=== PATIENT | female | born 1955 | race Caucasian/White ===

== ENCOUNTER 2017-02-02 10:56 | Inpatient (IN) | payer OTHER ==
[2017-02-02 11:42] LABS: BASOPHIL 0.8 % (0-2.0); EOSINOPHIL 1.5 % (0-4.5); MCH 29.3 pg (25.7-33.7); MCHC 33.1 g/dl (32.0-36.0); MEAN CELL VOLUME 88.7 fl (80-96); MEAN PLT VOLUME 8.3 fl (7.5-11.1); NEUTROPHILS 73.1 % (42.8-82.8); PLATELET COUNT 243 K/MM3 (134-434); RDW 14.5 % (11.6-15.6); WHITE BLOOD COUNT 10.8 K/mm3 (4.0-10.0)
[2017-02-02 11:43] LABS: URINE APPEARANCE SLCLOUDY; URINE BLOOD 1+ (NEGATIVE); URINE COLOR AMBER; URINE GLUCOSE (UA) NEGATIVE (NEGATIVE); URINE KETONE TRACE (NEGATIVE); URINE NITRITE NEGATIVE (NEGATIVE); URINE UROBILINOGEN 4.0 E.U/dl mg/dL (0.2-1.0)
[2017-02-02] MEDS ORDERED: HYDROmorphone HCL CARPU-JECT 1 MG/1 ML DISP.SYRIN IVPUSH ONE (11:48)
[2017-02-02] MEDS ORDERED: SODIUM CHLORIDE 1,000 ML IV STA (11:48)
[2017-02-02] MEDS ORDERED: ONDANSETRON 4 MG/2 ML VIAL IVPUSH ONE (11:48)
[2017-02-02 11:50] LABS: URINE LEUK ESTERASE 3+ (NEGATIVE); URINE MUCUS MANY; URINE PROTEIN 1+ (NEGATIVE); URINE RBC 17 /hpf (0-3); URINE WBC 15 /hpf (3-5)
[2017-02-02] MEDS ORDERED: HYDROmorphone HCL CARPU-JECT 1 MG/1 ML DISP.SYRIN ONE (11:50)
[2017-02-02] MEDS ORDERED: ONDANSETRON 4 MG/2 ML VIAL ONE (11:51)
--- NOTE | 2017-02-02 11:51 | PDOC ---
History of Present Illness - General History Source: Patient Exam Limitations: No Limitations - History of Present Illness Initial Comments: 02/02/17 11:51 61 year old female with a PMHx of diverticulitis (03/2016), asthma, COPD, multiple herniated discs who presents to the ED with worsening RLQ pain for two weeks. The patient reports the pain is constant and describes it as a bloating and socorro. She reports the pain is worse at night and when she has a bowel movement. She states her last normal bowel movement was a week ago. Her bowel movement this morning was smaller than usual and not normal for her. She has tried taking bisacodyl with no help. 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 She reports a fever (Tmax 100) last night. She denies taking medication for pain. She denies nausea, vomiting, diarrhea. Denies chest pain, SOB. Allergies: cefaclor, azithromycin, latex, levofloxacin <Phuong Jennings - Last Filed: 02/02/17 14:36> <Blaine Desir - Last Filed: 02/02/17 14:46> - General Chief Complaint: Pain Stated Complaint: PAIN Time Seen by Provider: 02/02/17 11:08 Past History <Phuong Jennings - Last Filed: 02/02/17 14:36> - Past Medical History Anemia: No Asthma: Yes Cancer: No Cardiac Disorders: No CVA: No COPD: Yes (pneumonia) CHF: No Dementia: No Diabetes: No GI Disorders: Yes (Diverticulitis, Polyps) Disorders: No HTN: No Hypercholesterolemia: No Liver Disease: No Seizures: No Thyroid Disease: No - Surgical History Abdominal Surgery: No Appendectomy: No Cardiac Surgery: No Cholecystectomy: No Lung Surgery: No Neurologic Surgery: No Orthopedic Surgery: Yes (L knee x2, L foot bone spur sx, bilateral elbow sx) - Immunization History Immunization Up to Date: Yes - Psycho/Social/Smoking Cessation Hx Anxiety: No Suicidal Ideation: No Smoking History: Never smoked Have you smoked in the past 12 months: No If you are a former smoker, when did you quit?: 16 YRS Information on smoking cessation initiated: No Hx Alcohol Use: No Drug/Substance Use Hx: No Substance Use Type: None Hx Substance Use Treatment: No <Blaine Desir - Last Filed: 02/02/17 14:46> - Past Medical History Allergies/Adverse Reactions: Allergies Allergy/AdvReac Type Severity Reaction Status Date / Time cefaclor [From Ceclor] Allergy Severe Difficulty Verified 07/05/16 09:47 Breathing azithromycin [From Zithromax] Allergy Intermediate Rash Verified 07/05/16 09:47 latex Allergy Mild Rash Verified 07/05/16 09:47 levofloxacin [From Levaquin] Allergy Mild Rash Verified 07/05/16 09:47 Home Medications: Ambulatory Orders Albuterol Sulfate [Proventil HFA Inhaler -] 1 - 2 inh PO TID PRN 04/06/16 Fluticasone/Salmeterol [Advair Hfa 230-21 Mcg Inhaler] 1 inh PO BID PRN Gabapentin [Neurontin -] 300 mg PO BID 04/06/16 Montelukast Na [Singulair -] 10 mg PO HS PRN 04/06/16 Tiotropium [place] [Spiriva] 1 inh PO TID PRN 04/06/16 Trazodone HCl [Desyrel -] 50 mg PO HS 04/06/16 Sumatriptan Succinate [Imitrex -] 100 mg PO ONCE #10 tablet MDD 200mg 07/05/16 Review of Systems - Review of Systems Able to Perform ROS?: Yes Comments:: 02/02/17 11:51 GENERAL/CONSTITUTIONAL: (+) fever. No chills. No weakness. HEAD, EYES, EARS, NOSE AND THROAT: No change in vision. No ear pain or discharge. No sore throat. CARDIOVASCULAR: No chest pain or shortness of breath. RESPIRATORY: No cough, wheezing, or hemoptysis. GASTROINTESTINAL: (+) RLQ pain. No nausea, vomiting, diarrhea. GENITOURINARY: No dysuria, frequency, or change in urination. MUSCULOSKELETAL: No joint or muscle swelling or pain. No neck or back pain. SKIN: No rash NEUROLOGIC: No headache, vertigo, loss of consciousness, or change in strength/ sensation. ENDOCRINE: No increased thirst. No abnormal weight change. HEMATOLOGIC/LYMPHATIC: No anemia, easy bleeding, or history of blood clots. ALLERGIC/IMMUNOLOGIC: No hives or skin allergy. <Phuong Jennings - Last Filed: 02/02/17 14:36> *Physical Exam - Vital Signs Last Vital Signs Temp Pulse Resp BP Pulse Ox 98.0 F 95 H 18 122/84 99 02/02/17 11:09 02/02/17 11:09 02/02/17 11:09 02/02/17 11:09 02/02/17 11:09 - Physical Exam Comments: 02/02/17 11:51 GENERAL: Awake, alert, and fully oriented, in no acute distress HEAD: No signs of trauma EYES: PERRLA, EOMI, sclera anicteric, conjunctiva clear ENT: Auricles normal inspection, hearing grossly normal, nares patent, oropharynx clear without exudates. Moist mucosa NECK: Normal ROM, supple, no lymphadenopathy, JVD, or masses LUNGS: Breath sounds equal, clear to auscultation bilaterally. No wheezes, and no crackles HEART: Regular rate and rhythm, normal S1 and S2, no murmurs, rubs or gallops ABDOMEN: Positive [place] sign, RUQ and RLQ tenderness to palpation. Soft, normoactive bowel sounds. No guarding, no rebound. No masses EXTREMITIES: Normal range of motion, no edema. No clubbing or cyanosis. No cords, erythema, or tenderness NEUROLOGICAL: Cranial nerves II through XII grossly intact. Normal speech, normal gait SKIN: Warm, Dry, normal turgor, no rashes or lesions noted. <Phuong Jennings - Last Filed: 02/02/17 14:36> - Vital Signs Last Vital Signs Temp Pulse Resp BP Pulse Ox 98.0 F 95 H 18 122/84 99 02/02/17 11:09 02/02/17 11:09 02/02/17 11:09 02/02/17 11:09 02/02/17 11:09 <Blaine Desir - Last Filed: 02/02/17 14:46> ED Treatment Course - LABORATORY CBC & Chemistry Diagram: 02/02/17 11:20 02/02/17 11:20 - ADDITIONAL ORDERS Additional order review: Laboratory Results 02/02/17 11:20 Urine Color Gayla Urine Appearance Slcloudy Urine pH 5.0 Urine Protein 1+ H Urine Glucose (UA) Negative Urine Ketones Trace H Urine Blood 1+ H Urine Nitrite Negative Urine Bilirubin 2.0 Urine Urobilinogen 4.0 e.u/dl H Ur Leukocyte Esterase 3+ H 02/02/17 11:20 RBC 4.95 MCV 88.7 MCHC 33.1 RDW 14.5 MPV 8.3 Neutrophils % 73.1 D Lymphocytes % 16.8 D Monocytes % 7.8 Eosinophils % 1.5 Basophils % 0.8 - RADIOLOGY Radiograph Interpretation: 02/02/17 13:03 Gallbladder US: Reported by Dr. Morteza Flaherty Impression: mild degree hepatomegaly with diffuse hepatic steatosis. Normal gallbladder and pancreas with no biliary dilation. No hydronephrosis or renal stones, no gallstones, normal appearance of the gallbladder. No ascites. <Phuong Jennings - Last Filed: 02/02/17 14:36> - LABORATORY CBC & Chemistry Diagram: 02/02/17 11:20 02/02/17 11:20 - ADDITIONAL ORDERS Additional order review: Laboratory Results 02/02/17 11:20 Urine Color Gayla Urine Appearance Slcloudy Urine pH 5.0 Urine Protein 1+ H Urine Glucose (UA) Negative Urine Ketones Trace H Urine Blood 1+ H Urine Nitrite Negative Urine Bilirubin 2.0 Urine Urobilinogen 4.0 e.u/dl H Ur Leukocyte Esterase 3+ H 02/02/17 11:20 RBC 4.95 MCV 88.7 MCHC 33.1 RDW 14.5 MPV 8.3 Neutrophils % 73.1 D Lymphocytes % 16.8 D Monocytes % 7.8 Eosinophils % 1.5 Basophils % 0.8 - RADIOLOGY Radiology Studies Ordered: Category Date Time Status ABDOMEN & PELVIS CT WITH CONTR [CT] Stat CT Scan 02/02/17 11:31 Ordered GALLBLADDER US [US] Stat Ultrasound 02/02/17 11:31 Ordered <Blaine Desir - Last Filed: 02/02/17 14:46> Medical Decision Making - Medical Decision Making 02/02/17 14:[address] Bell. [phone] <Phuong Jennings - Last Filed: 02/02/17 14:36> *DC/Admit/Observation/Transfer - Attestations Scribe Attestion: 02/02/17 11:52 Documentation prepared by Phuong Jennings, acting as medical officer psychiatry for Blaine Desir DO. <Phuong Jennings - Last Filed: 02/02/17 14:36> - Discharge Dispostion Admit: Yes - Attestations Physician Attestion: 02/02/17 11:51 I, Dr. Blaine Desir, attest that this document has been prepared under my direction and personally reviewed by me in its entirety. I further attest, that it accurately reflects all work, treatment, procedures and medical decision -making performed by me. <Blaine Desir - Last Filed: 02/02/17 14:46> Diagnosis at time of Disposition: Acute diverticulitis of intestine - Discharge Dispostion Condition at time of disposition: Improved - Referrals Referrals: Ashley Shah [Primary Care Provider] -
[2017-02-02 11:54] LABS: INR 1.05 (0.82-1.09); PROTHROMBIN TIME (PATIENT) 11.6 SEC (9.98-11.88)
[2017-02-02 12:22] LABS: ALBUMIN 3.6 g/dl (3.4-5.0); ANION GAP 5 (8-16); BILIRUBIN,TOTAL 0.2 mg/dL (0.2-1.0); CALCIUM 9.4 mg/dL (8.5-10.1); CO2 28 mmol/L (21-32); CREATININE 0.6 mg/dL (0.55-1.02); GLUCOSE,RANDOM 91 mg/dL (74-106); SGOT/AST 13 U/L (15-37); SGPT/ALT 14 U/L (12-78); TOT PROT 7.9 g/dl (6.4-8.2)
[2017-02-02 12:23] LABS: ALK PHOS 114 U/L (45-117)
[2017-02-02] MEDS ORDERED: METRONIDAZOLE 500 MG PREMIXED 100 ML IVPB ONE ×2 (14:28→14:32)
[2017-02-02] MEDS ORDERED: MEROPENEM 1 MG in DEXTROSE 5%-WATER - 100 ML IVPB ONE (14:32)
[2017-02-02] MEDS ORDERED: ALBUTEROL SO4 6.7 GM HFA INHALER IH PRN ×3 (15:02→15:49)
[2017-02-02] MEDS ORDERED: MONTELUKAST NA 10 MG TABLET PO PRN (15:02)
[2017-02-02] MEDS ORDERED: PATIENT'S OWN MEDICATION (NON-FORMULARY) (Fluticasone/Salmeterol [Advair Hfa 230-21 Mcg In PO PRN (15:02)
--- NOTE | 2017-02-02 15:03 | HP ---
CHIEF COMPLAINT: Abdominal pain PCP: YARA Aguilera HISTORY OF PRESENT ILLNESS: This is a 61 year old female with a history of diverticulitis (3 prior episodes), admission for colonoscopy complicated by sepsis, asthma/COPD, lumbar radiculopathy and chronic back pain, and LANDEN who presented to the ED complaining of two weeks of abdominal pain (worst in RLQ), now with nausea and low grade fever (100.0 at home). ER course was notable for: (1) WBC 10.8 (2) CTAP with PO/IV contrast: Acute diverticulitis of the sigmoid colon with a small intramural abscess with ring enhancement measuring 2.1 x 1.5 x 1.8cm (3) UA with 3+ leukesterase Recent Travel: None PAST MEDICAL HISTORY: As above PAST SURGICAL HISTORY: Bilateral elbows, bilateral knees, left plantar foot Social History: On disability (COPD, chronic back pain), lives alone Smoking: Quit 1999 Alcohol: Occasional Drugs: None Family History: Father from [place] in 80s, mother with lymphoma Allergies cefaclor [From Ceclor] Allergy (Severe, Verified 07/05/16 09:47) Difficulty Breathing Anaphylactic shock azithromycin [From Zithromax] Allergy (Intermediate, Verified 07/05/16 09:47) Rash latex Allergy (Mild, Verified 07/05/16 09:47) Rash levofloxacin [From Levaquin] Allergy (Mild, Verified 07/05/16 09:47) Rash HOME MEDICATIONS: Home Medications Medication Instructions Recorded Albuterol Sulfate [Proventil HFA 1 - 2 inh PO TID PRN 04/06/16 Inhaler -] Fluticasone/Salmeterol [Advair Hfa 1 inh PO BID PRN 04/06/16 230-21 Mcg Inhaler] Gabapentin [Neurontin -] 300 mg PO BID 04/06/16 Montelukast Na [Singulair -] 10 mg PO HS PRN 04/06/16 Tiotropium [place] [Spiriva] 1 inh PO TID PRN 04/06/16 Trazodone HCl [Desyrel -] 50 mg PO HS 04/06/16 Sumatriptan Succinate [Imitrex -] 100 mg PO ONCE #10 tablet MDD 200mg 07/05/16 REVIEW OF SYSTEMS CONSTITUTIONAL: Subjective/low grade fever Absent: chills, diaphoresis, generalized weakness, malaise, loss of appetite, weight change HEENT: Absent: rhinorrhea, nasal congestion, throat pain, throat swelling, difficulty swallowing, mouth swelling, ear pain, eye pain, visual changes CARDIOVASCULAR: Absent: chest pain, syncope, palpitations, irregular heart rate, lightheadedness , peripheral edema RESPIRATORY: Absent: cough, shortness of breath, dyspnea with exertion, orthopnea, wheezing, stridor, hemoptysis GASTROINTESTINAL: See HPI GENITOURINARY: Absent: dysuria, frequency, urgency, hesitancy, hematuria, flank pain, genital pain MUSCULOSKELETAL: Absent: myalgia, arthralgia, joint swelling, back pain, neck pain SKIN: Absent: rash, itching, pallor HEMATOLOGIC/IMMUNOLOGIC: Absent: easy bleeding, easy bruising, lymphadenopathy, frequent infections ENDOCRINE: Absent: unexplained weight gain, unexplained weight loss, heat intolerance, cold intolerance NEUROLOGIC: Absent: headache, focal weakness or paresthesias, dizziness, unsteady gait, seizure, mental status changes, bladder or bowel incontinence PSYCHIATRIC: Absent: anxiety, depression, suicidal or homicidal ideation, hallucinations. PHYSICAL EXAMINATION Vital Signs - 24 hr 02/02/17 02/02/17 11:09 13:52 Temperature 98.0 F 98.6 F Pulse Rate 95 H Pulse Rate [ 89 Left Apical] Respiratory 18 16 Rate Blood Pressure 122/84 Blood Pressure 112/68 [Right Arm] O2 Sat by Pulse 99 98 Oximetry (%) GENERAL: Awake, alert, and fully oriented, in no acute distress. HEAD: Normal with no signs of trauma. EYES: Pupils equal, round and reactive to light, extraocular movements intact, sclera anicteric, conjunctiva clear. No lid lag. EARS, NOSE, THROAT: Ears normal, nares patent, oropharynx clear without exudates. Moist mucous membranes. NECK: Normal range of motion, supple without lymphadenopathy, JVD, or masses. LUNGS: Breath sounds equal, clear to auscultation bilaterally. No wheezes, and no crackles. No accessory muscle use. HEART: Regular rate and rhythm, normal S1 and S2 without murmur, rub or gallop. ABDOMEN: Soft, tender to palpation RLQ>LLQ, not distended, normoactive bowel sounds, no guarding, no rebound, no masses. No hepatomegaly or splenomegaly. MUSCULOSKELETAL: Normal range of motion at all joints. No bony deformities or tenderness. No CVA tenderness. UPPER EXTREMITIES: 2+ pulses, warm, well-perfused. No cyanosis. No clubbing. No peripheral edema. LOWER EXTREMITIES: 2+ pulses, warm, well-perfused. No calf tenderness. No peripheral edema. NEUROLOGICAL: Cranial nerves II-XII intact. Normal speech. Normal gait. PSYCHIATRIC: Cooperative. Good eye contact. Appropriate mood and affect. SKIN: Warm, dry, normal turgor, no rashes or lesions noted, normal capillary refill. Laboratory Results - last 24 hr 02/02/17 02/02/17 02/02/17 11:20 11:20 11:20 WBC 10.8 H D RBC 4.95 Hgb 14.5 Hct 43.9 MCV 88.7 MCH 29.3 MCHC 33.1 RDW 14.5 Plt Count 243 D MPV 8.3 Neutrophils % 73.1 D Lymphocytes % 16.8 D Monocytes % 7.8 Eosinophils % 1.5 Basophils % 0.8 INR 1.05 Sodium Potassium Chloride Carbon Dioxide Anion Gap BUN Creatinine Creat Clearance w eGFR Random Glucose Calcium Total Bilirubin AST ALT Alkaline Phosphatase Total Protein Albumin Lipase Urine Color Gayla Urine Appearance Slcloudy Urine pH 5.0 Urine Protein 1+ H Urine Glucose (UA) Negative Urine Ketones Trace H Urine Blood 1+ H Urine Nitrite Negative Urine Bilirubin 2.0 Urine Urobilinogen 4.0 e.u/dl H Ur Leukocyte Esterase 3+ H Urine RBC 17 Urine WBC 15 Ur Epithelial Cells Moderate Urine Mucus Many 02/02/17 11:20 WBC RBC Hgb Hct MCV MCH MCHC RDW Plt Count MPV Neutrophils % Lymphocytes % Monocytes % Eosinophils % Basophils % INR Sodium 139 Potassium 4.4 Chloride 106 Carbon Dioxide 28 Anion Gap 5 L BUN 7 D Creatinine 0.6 Creat Clearance w eGFR > 60 Random Glucose 91 Calcium 9.4 Total Bilirubin 0.2 D AST 13 L ALT 14 D Alkaline Phosphatase 114 Total Protein 7.9 Albumin 3.6 Lipase 141 Urine Color Urine Appearance Urine pH Urine Protein Urine Glucose (UA) Urine Ketones Urine Blood Urine Nitrite Urine Bilirubin Urine Urobilinogen Ur Leukocyte Esterase Urine RBC Urine WBC Ur Epithelial Cells Urine Mucus ASSESSMENT/PLAN: 61 year old female admitted with acute diverticulitis with abscess. Problem List - Problem (1) Diverticulitis of intestine with abscess Assessment/Plan: -NPO -Surgical consult -In consultation with ID, Meropenem (Levaquin allergy) + Flagyl; documented that patient is allergic to Cefaclor but can take PCNs without a reaction -Morphine 4mg IVPB q4h prn pain -Zofran 4mg q6h prn nausea Code(s): K57.80 - DVTRCLI OF INTEST, PART UNSP, W PERF AND ABSCESS W/O BLEED (2) Asthma Assessment/Plan: -With COPD -No active issues -Continue albuterol prn, Advair, Spiriva Code(s): J45.909 - UNSPECIFIED ASTHMA, UNCOMPLICATED (3) DVT prophylaxis Assessment/Plan: -Out of bed -[facility] Code(s): [id number] - Visit type - Emergency Visit Emergency Visit: Yes ED Registration Date: 02/02/17 Care time: The patient presented to the Emergency Department on the above date and was hospitalized for further evaluation of their emergent condition. - New Patient This patient is new to me today: Yes Date on this admission: 02/02/17 - Critical Care Critical Care patient: No
[2017-02-02] MEDS ORDERED: ONDANSETRON 4 MG/2 ML VIAL IVPB PRN (15:04)
[2017-02-02] MEDS ORDERED: morphine CARPU-JECT 2 MG/1 ML DISP.SYRIN IVPUSH PRN (15:04)
[2017-02-02] MEDS: SODIUM CHLORIDE 1,000 ML IV SCH (15:19)
--- NOTE | 2017-02-02 16:09 | CONSULT ---
Consult Consult Specialty:: infectious disesases Referred by:: Reason for Consultation:: diverticulitis - History of Present Illness Chief Complaint: abd pain,fever History of Present Illness: 61 year old female with a PMHx of diverticulitis asthma, COPD, multiple herniated discs who presents to the ED with worsening LLQ pain for two weeks. The patient reports the pain is constant and describes it as a bloating and socorro. according to the patient she has been having constipation for quite some time and her last BM was about a week back no nausea vomiting low grade temp according to her according to the patient this is her 4th episode - History Source History Provided By: Patient - Past Medical History Pulmonary: Yes: COPD, Pneumonia Infectious Disease: Yes: Other (varicella as child) Rheumatology: Yes: Other (arthritis, herniated disc) - Alcohol/Substance Use Hx Alcohol Use: No - Smoking History Smoking history: Never smoked Have you smoked in the past 12 months: No If you are a former smoker, when did you quit?: 16 YRS - Social History Usual Living Arrangement: Alone ADL: Independent Occupation: on disability Home Medications - Allergies Allergies/Adverse Reactions: Allergies Allergy/AdvReac Type Severity Reaction Status Date / Time cefaclor [From Ceclor] Allergy Severe Difficulty Verified 07/05/16 09:47 Breathing azithromycin [From Zithromax] Allergy Intermediate Rash Verified 07/05/16 09:47 latex Allergy Mild Rash Verified 07/05/16 09:47 levofloxacin [From Levaquin] Allergy Mild Rash Verified 07/05/16 09:47 - Home Medications Home Medications: Ambulatory Orders Albuterol Sulfate [Proventil HFA Inhaler -] 1 - 2 inh PO TID PRN 04/06/16 Fluticasone/Salmeterol [Advair Hfa 230-21 Mcg Inhaler] 1 inh PO BID PRN Gabapentin [Neurontin -] 300 mg PO BID 04/06/16 Montelukast Na [Singulair -] 10 mg PO HS PRN 04/06/16 Tiotropium [place] [Spiriva] 1 inh PO TID PRN 04/06/16 Trazodone HCl [Desyrel -] 50 mg PO HS 04/06/16 Sumatriptan Succinate [Imitrex -] 100 mg PO ONCE #10 tablet MDD 200mg 12/28/16 Review of Systems - Review of Systems Constitutional: reports: Fever Eyes: reports: No Symptoms HENT: reports: No Symptoms Neck: reports: No Symptoms Cardiovascular: reports: No Symptoms Respiratory: reports: No Symptoms Gastrointestinal: reports: Abdominal Pain, Constipation Genitourinary: reports: No Symptoms Musculoskeletal: reports: No Symptoms Integumentary: reports: No Symptoms Neurological: reports: No Symptoms Endocrine: reports: No Symptoms Hematology/Lymphatic: reports: No Symptoms Psychiatric: reports: No Symptoms Physical Exam Vital Signs: Vital Signs Temperature 98.6 F 02/02/17 13:52 Pulse Rate 89 02/02/17 13:52 Respiratory Rate 16 02/02/17 13:52 Blood Pressure 112/68 02/02/17 13:52 O2 Sat by Pulse Oximetry (%) 98 02/02/17 13:52 Constitutional: Yes: Calm, Mild Distress Eyes: Yes: Conjunctiva Clear Neck: Yes: Supple Cardiovascular: Yes: Regular Rate and Rhythm Respiratory: Yes: Regular, CTA Bilaterally Gastrointestinal: Yes: Soft, Hypoactive Bowel Sounds, Other (tenderness in the left lower quadrant) Musculoskeletal: Yes: WNL Extremities: Yes: WNL Neurological: Yes: Alert, Oriented Psychiatric: Yes: Alert, Oriented Imaging - Results Cat Scan: Report Reviewed, Image Reviewed Assessment/Plan patient evaluated and seen currently feeling better ac.diverticulitis abd abscess plan we will start her on meropenam strict npo close watch on pain and wbc if increases thern we will repeat imaging studies
[2017-02-02] MEDS ORDERED: MEROPENEM 1 GM in DEXTROSE 5%-WATER - 100 ML IVPB SCH (18:00)
[2017-02-02 18:09] VITALS: BMI 26.4
[2017-02-02] MEDS: HEPARIN NA (PORCINE) 5,000 UNITS/ML 1ML VIAL SQ SCH (18:20)
[2017-02-02] MEDS: MEROPENEM 1 GM in DEXTROSE 5%-WATER 100 ML IVPB SCH (18:24)
[2017-02-02] MEDS: morphine CARPU-JECT 4 MG/1 ML DISP.SYRIN IVPUSH PRN (18:32)
[2017-02-02] MEDS ORDERED: METRONIDAZOLE PREMIXED IVPB 50 ML IVPB SCH (21:00)
[2017-02-02] MEDS: GABAPENTIN 100 MG CAPSULE (FP) PO SCH (21:29)
[2017-02-02] MEDS: ACLIDINIUM BROMIDE 400 MCG/INH AERO.POWD IH SCH (23:47)
[2017-02-02] MEDS: traZODone HCL 50 MG TABLET (FP) PO SCH (23:48)
[2017-02-03] MEDS: MEROPENEM 1 GM in DEXTROSE 5%-WATER 100 ML IVPB SCH ×3 (01:32→17:44)
[2017-02-03] MEDS: HEPARIN NA (PORCINE) 5,000 UNITS/ML 1ML VIAL SQ SCH ×3 (01:32→17:44)
[2017-02-03] MEDS: SODIUM CHLORIDE 1,000 ML IV SCH ×3 (01:36→17:59)
[2017-02-03 07:34] LABS: BASOPHIL 0.9 % (0-2.0); EOSINOPHIL 2.8 % (0-4.5); MCH 29.7 pg (25.7-33.7); MCHC 33.6 g/dl (32.0-36.0); MEAN CELL VOLUME 88.4 fl (80-96); MEAN PLT VOLUME 8.9 fl (7.5-11.1); NEUTROPHILS 68.2 % (42.8-82.8); PLATELET COUNT 227 K/MM3 (134-434); RDW 14.1 % (11.6-15.6); WHITE BLOOD COUNT 7.4 K/mm3 (4.0-10.0)
[2017-02-03] MEDS: morphine CARPU-JECT 4 MG/1 ML DISP.SYRIN IVPUSH PRN ×2 (07:56→13:02)
[2017-02-03 08:00] LABS: ANION GAP 6 (8-16); CALCIUM 8.3 mg/dL (8.5-10.1); CO2 30 mmol/L (21-32); GLUCOSE,RANDOM 81 mg/dL (74-106)
[2017-02-03 08:04] LABS: ALK PHOS 98 U/L (45-117); BILIRUBIN,TOTAL 0.4 mg/dL (0.2-1.0); CREATININE 0.5 mg/dL (0.55-1.02); SGOT/AST 10 U/L (15-37); SGPT/ALT 12 U/L (12-78); TOT PROT 6.7 g/dl (6.4-8.2)
[2017-02-03] MEDS ORDERED: PT OWN MED DRAWER 7, Y5N ONE ×3 (10:14→18:07)
[2017-02-03] MEDS: GABAPENTIN 100 MG CAPSULE (FP) PO SCH ×2 (10:15→21:03)
[2017-02-03] MEDS: ACLIDINIUM BROMIDE 400 MCG/INH AERO.POWD IH SCH ×2 (10:17→21:58)
--- NOTE | 2017-02-03 10:50 | PN ---
Progress Note, Physician History of Present Illness: patient stable pain has increased from yesterday to today - Current Medication List Current Medications: Active Medications Aclidinium [place] (Tudorza -) 1 puff IH BID YAN Last Admin: 02/03/17 10:17 Dose: Not Given Albuterol Sulfate (Ventolin 0.083% Nebulizer Soln -) 1 amp NEB Q6H PRN PRN Reason: SHORT OF BREATH/WHEEZING Gabapentin (Neurontin -) 300 mg PO BID YAN Last Admin: 02/03/17 10:15 Dose: 300 mg Heparin Sodium (Porcine) (Heparin -) 5,000 unit SQ Q8H-IV YAN Last Admin: 02/03/17 10:22 Dose: 5,000 unit Sodium Chloride (Normal Saline -) 1,000 mls @ 83 mls/hr IV ASDIR YAN Stop: 02/04/17 03:18 Last Admin: 02/03/17 01:36 Dose: 83 mls/hr Meropenem 1 gm/ Dextrose 100 mls @ 100 mls/hr IVPB Q8H-IV YAN PRN Reason: Protocol Last Admin: 02/03/17 01:32 Dose: 100 mls/hr Montelukast Sodium (Singulair -) 10 mg PO HS PRN PRN Reason: ASTHMA Morphine Sulfate (Morphine Injection -) 4 mg IVPUSH Q4H PRN PRN Reason: PAIN Last Admin: 02/03/17 07:56 Dose: 4 mg Non-Formulary Medication (Fluticasone/Salmeterol [Advair Hfa 230-21 Mcg Inhaler] ) 1 inh PO BID PRN PRN Reason: ASTHMA Ondansetron HCl (Zofran Injection) 4 mg IVPB Q6H PRN PRN Reason: NAUSEA Last Admin: 02/03/17 08:12 Dose: 4 mg Trazodone HCl (Desyrel -) 50 mg PO HS YAN Last Admin: 02/02/17 23:48 Dose: 50 mg - Objective Vital Signs: Vital Signs Temperature 98.7 F 02/03/17 06:00 Pulse Rate 85 02/03/17 06:00 Respiratory Rate 16 02/03/17 06:00 Blood Pressure 101/62 02/03/17 06:00 O2 Sat by Pulse Oximetry (%) 95 02/02/17 22:00 Constitutional: Yes: Calm, Mild Distress Cardiovascular: Yes: Regular Rate and Rhythm Respiratory: Yes: Regular, CTA Bilaterally Gastrointestinal: Yes: Soft, Hypoactive Bowel Sounds, Tenderness Musculoskeletal: Yes: WNL Extremities: Yes: WNL Neurological: Yes: Alert, Oriented Psychiatric: Yes: Alert, Oriented Labs: CBC, BMP 02/03/17 06:35 02/03/17 06:35 INR, PTT INR 1.05 (0.82-1.09) 02/02/17 11:20 Assessment/Plan patient evaluated and seen currently feeling better ac.diverticulitis abd abscess plan continue abx npo close watch if pain increases repeat ct scan
[2017-02-03] MEDS: ALBUTEROL SO4 0.083% IH SOL 2.5 MG/3 ML VIAL.NEB. NEB PRN ×3 (11:18→22:39)
--- NOTE | 2017-02-03 11:59 | CONSULT ---
- Consultation REQUESTING PROVIDER: Jumana Toro QC CHEMIST CONSULT REQUEST: We have been asked to surgically evaluate this patient for abdominal pain. PCP:Chelsi Orlando HISTORY OF PRESENT ILLNESS:61 y/o female presented w/ abdominal pain w/u revealed fidings c/w sigmoid diverticulitis w/small intramural abscess; she last had this 01/19/15 and was txed as a outpatiet; she states she is improved since admisson on IVF and IVABS; she has NOC. She has had colonoscopy in the past. PMHx: asthma/peumonia migraines PSHx: arthroscopic surgery Home Medications Medication Instructions Recorded Albuterol Sulfate [Proventil HFA 1 - 2 inh PO TID PRN 04/06/16 Inhaler -] Fluticasone/Salmeterol [Advair Hfa 1 inh PO BID PRN 04/06/16 230-21 Mcg Inhaler] Gabapentin [Neurontin -] 300 mg PO BID 04/06/16 Montelukast Na [Singulair -] 10 mg PO DAILY PRN 04/06/16 Tiotropium [place] [Spiriva] 1 inh PO TID PRN 04/06/16 Trazodone HCl [Desyrel -] 50 mg PO HS 04/06/16 Sumatriptan Succinate [Imitrex -] 100 mg PO ONCE #10 tablet MDD 200mg 07/05/16 Allergies Allergy/AdvReac Type Severity Reaction Status Date / Time cefaclor [From Ceclor] Allergy Severe Difficulty Verified 07/05/16 09:47 Breathing azithromycin [From Zithromax] Allergy Intermediate Rash Verified 07/05/16 09:47 latex Allergy Mild Rash Verified 07/05/16 09:47 levofloxacin [From Levaquin] Allergy Mild Rash Verified 07/05/16 09:47 PHYSICAL EXAM: GENERAL: Awake, alert, and fully oriented, in no acute distress. HEAD: Normal with no signs of trauma. EYES: , sclera anicteric, conjunctiva clear. NECK: Normal ROM, supple without lymphadenopathy, JVD, or masses. ABDOMEN: Soft, nontender, not distended, normoactive bowel sounds, no guarding, no rebound, no masses. No organomegaly. No hernias MUSCULOSKELETAL: Normal ROM at all joints. No bony deformities or tenderness. No CVA tenderness. UPPER EXTREMITIES: 2+ pulses, warm, well-perfused. No cyanosis. Cap refill <2 seconds. No peripheral edema. LOWER EXTREMITIES: 2+ pulses, warm, well-perfused. No calf tenderness. No peripheral edema. NEUROLOGICAL: Normal speech, gait not observed. PSYCH: Cooperative. Good eye contact. Appropriate mood and affect. SKIN: Warm, dry, normal turgor, no rashes or lesions noted. Vital Signs Temperature 99.1 F 02/03/17 10:00 Pulse Rate 88 02/03/17 10:00 Respiratory Rate 16 02/03/17 10:00 Blood Pressure 97/65 02/03/17 10:00 O2 Sat by Pulse Oximetry (%) 95 02/02/17 22:00 Lab Results WBC 7.4 K/mm3 (4.0-10.0) D 02/03/17 06:35 RBC 4.31 M/mm3 (3.60-5.2) 02/03/17 06:35 Hgb 12.8 GM/dL (10.7-15.3) D 02/03/17 06:35 Hct 38.1 % (32.4-45.2) 02/03/17 06:35 MCV 88.4 fl (80-96) 02/03/17 06:35 MCHC 33.6 g/dl (32.0-36.0) 02/03/17 06:35 RDW 14.1 % (11.6-15.6) 02/03/17 06:35 Plt Count 227 K/MM3 (134-434) 02/03/17 06:35 Sodium 139 mmol/L (136-145) 02/03/17 06:35 Potassium 4.2 mmol/L (3.5-5.1) 02/03/17 06:35 Chloride 103 mmol/L (98-107) 02/03/17 06:35 Carbon Dioxide 30 mmol/L (21-32) 02/03/17 06:35 Anion Gap 6 (8-16) L 02/03/17 06:35 BUN 6 mg/dL (7-18) L 02/03/17 06:35 Creatinine 0.5 mg/dL (0.55-1.02) L 02/03/17 06:35 Random Glucose 81 mg/dL (74-106) 02/03/17 06:35 Calcium 8.3 mg/dL (8.5-10.1) L 02/03/17 06:35 INR 1.05 (0.82-1.09) 02/02/17 11:20 Imaging w/u to date reviewed IMP: recurrent sigmoid dierticultis JOSE: Concur w/ w/u and tx. to date; continue same; will f/u.. Kevin Ramos MD FACS Visit type - Case Type Case Type: ED Admission - Emergency Emergency Visit: Yes ED Registration Date: 02/02/17 Care time: The patient presented to the Emergency Department on the above date and was hospitalized for further evaluation of their emergent condition. - New patient This patient is new to me today: Yes Date on this admission: 02/03/17 - Critical Care Critical Care patient: No
--- NOTE | 2017-02-03 13:02 | PN ---
Progress Note (short form) - Note Progress Note: Subjective: The patient was seen and examined at the bedside, she reports having abdominal pain. She states this is her 4th or 5th time having diverticulitis and the last time was 03/2016 Current Medications Generic Name Dose Route Start Last Admin Trade Name Freq PRN Reason Stop Dose Admin Aclidinium [place] 1 puff 02/02/17 22:00 02/03/17 10:17 Tudorza - IH Not Given BID YAN Albuterol Sulfate 1 amp 02/03/17 10:41 02/03/17 11:18 Ventolin 0.083% Nebulizer Soln - NEB 1 amp Q6H PRN Administration SHORT OF BREATH/WHEEZING Gabapentin 300 mg 02/02/17 22:00 02/03/17 10:15 Neurontin - PO 300 mg BID YAN Administration Heparin Sodium (Porcine) 5,000 unit 02/02/17 18:00 02/03/17 10:22 Heparin - SQ 5,000 unit Q8H-IV YAN Administration Sodium Chloride 1,000 mls @ 83 mls/hr 02/02/17 15:15 02/03/17 01:36 Normal Saline - IV 02/04/17 03:18 83 mls/hr ASDIR YAN Administration Meropenem 1 gm/ Dextrose 100 mls @ 100 mls/hr 02/02/17 18:00 02/03/17 11:11 IVPB 100 mls/hr Q8H-IV YAN Administration Protocol Montelukast Sodium 10 mg 02/02/17 15:02 Singulair - PO HS PRN ASTHMA Morphine Sulfate 4 mg 02/02/17 18:18 02/03/17 07:56 Morphine Injection - IVPUSH 4 mg Q4H PRN Administration PAIN Non-Formulary Medication 1 inh 02/02/17 15:02 Fluticasone/Salmeterol [Advair Hfa 230-21 Mcg Inhaler] PO BID PRN ASTHMA Ondansetron HCl 4 mg 02/02/17 15:04 02/03/17 08:12 Zofran Injection IVPB 4 mg Q6H PRN Administration NAUSEA Trazodone HCl 50 mg 02/02/17 22:00 02/02/17 23:48 Desyrel - PO 50 mg HS YAN Administration Objective; Vital Signs Period Temp Pulse Resp BP Sys/Kaur Pulse Ox Last 24 Hr 98.2 F-99.1 F 72-89 16-18 97-112/57-68 93-98 Physical Exam: General: NAD, A&Ox3 Lungs: CTA bilaterally Heart: RRR, S1S2 Abd: Soft, mild diffuse tenderness. Normoactive bowel sounds Ext: Warm, well-perfused. 2+ DP/PT bilaterally Neuro: CN 2-12 intact CBCD WBC 7.4 K/mm3 (4.0-10.0) D 02/03/17 06:35 RBC 4.31 M/mm3 (3.60-5.2) 02/03/17 06:35 Hgb 12.8 GM/dL (10.7-15.3) D 02/03/17 06:35 Hct 38.1 % (32.4-45.2) 02/03/17 06:35 MCV 88.4 fl (80-96) 02/03/17 06:35 MCHC 33.6 g/dl (32.0-36.0) 02/03/17 06:35 RDW 14.1 % (11.6-15.6) 02/03/17 06:35 Plt Count 227 K/MM3 (134-434) 02/03/17 06:35 MPV 8.9 fl (7.5-11.1) 02/03/17 06:35 CMP Sodium 139 mmol/L (136-145) 02/03/17 06:35 Potassium 4.2 mmol/L (3.5-5.1) 02/03/17 06:35 Chloride 103 mmol/L (98-107) 02/03/17 06:35 Carbon Dioxide 30 mmol/L (21-32) 02/03/17 06:35 Anion Gap 6 (8-16) L 02/03/17 06:35 BUN 6 mg/dL (7-18) L 02/03/17 06:35 Creatinine 0.5 mg/dL (0.55-1.02) L 02/03/17 06:35 Creat Clearance w eGFR > 60 (>60) 02/03/17 06:35 Random Glucose 81 mg/dL (74-106) 02/03/17 06:35 Calcium 8.3 mg/dL (8.5-10.1) L 02/03/17 06:35 Total Bilirubin 0.4 mg/dL (0.2-1.0) D 02/03/17 06:35 AST 10 U/L (15-37) L D 02/03/17 06:35 ALT 12 U/L (12-78) 02/03/17 06:35 Alkaline Phosphatase 98 U/L (45-117) 02/03/17 06:35 Total Protein 6.7 g/dl (6.4-8.2) 02/03/17 06:35 Albumin 3.0 g/dl (3.4-5.0) L 02/03/17 06:35 Imaging: CTAP: CT findings consistent with acute diverticulitis involving the sigmoid colon with an intermural abscess noted in the wall of the sigmoid colon measuring 2.1 x1.5 x1.8cm with ring enhancement noted. No drainable abscess or fluid collection in the pelvis identified. Gallbladder ultrasound: mild degree hepatomegaly with diffuse hepatic steatosis. Normal gallbladder and pancreas with no biliary dilation. No hydronephrosis or renal stones, no gallstones, normal appearance of the gallbladder. No ascites Assessment: This is a 61 year old female with PMHx of diverticulitis, admission for colonoscopy complicated by sepsis, asthma/COPD, lumbar radiculopathy and chronic back pain, and LANDEN who presented to the ED complaining of two weeks of abdominal pain. Plan: 1) GI: Recurrent sigmoid diverticulitis with abscess - WBC WNL - If pain persists, or worsening symptoms, will order CTAP - Continue Meropenem - Remains NPO, may advance diet tomorrow depending on how the patient is feeling - Morphine prn - Zofran prn - Continue IVF until tolerating PO - Appreciate ID consult - Appreciate surgery consult 2) Pulmonary: Asthma/COPD - No active issues - Continue Advair - Continue Turdoza - Continue Singulair - Nebs prn 3) F/E/N: - Monitor electrolytes - Continue NPO status 4) Prophylaxis: - Heparin 5,000u sq tid - OOB ambulating 5) Dispo: - Requires continued inpatient care CODE STATUS: FULL CODE Visit type - Emergency Visit Emergency Visit: Yes ED Registration Date: 02/02/17 Care time: The patient presented to the Emergency Department on the above date and was hospitalized for further evaluation of their emergent condition. - New Patient This patient is new to me today: Yes Date on this admission: 02/03/17 - Critical Care Critical Care patient: No
[2017-02-03] MEDS ORDERED: ACETAMINOPHEN 325 MG TABLET (FP) PO ONE (14:51)
[2017-02-03] MEDS ORDERED: ACETAMINOPHEN 325 MG TABLET (FP) PO PRN (20:46)
[2017-02-03] MEDS ORDERED: ACETAMINOPHEN 325 MG TABLET (FP) ONE (20:50)
[2017-02-03] MEDS: traZODone HCL 50 MG TABLET (FP) PO SCH (21:03)
[2017-02-04] MEDS: MEROPENEM 1 GM in DEXTROSE 5%-WATER 100 ML IVPB SCH ×3 (02:05→17:05)
[2017-02-04] MEDS: HEPARIN NA (PORCINE) 5,000 UNITS/ML 1ML VIAL SQ SCH ×3 (02:06→17:05)
[2017-02-04] MEDS: morphine CARPU-JECT 4 MG/1 ML DISP.SYRIN IVPUSH PRN (06:23)
[2017-02-04] MEDS: ALBUTEROL SO4 0.083% IH SOL 2.5 MG/3 ML VIAL.NEB. NEB PRN ×3 (07:24→22:49)
[2017-02-04 07:26] LABS: BASOPHIL 1.1 % (0-2.0); EOSINOPHIL 0.8 % (0-4.5); MCH 29.7 pg (25.7-33.7); MCHC 33.3 g/dl (32.0-36.0); MEAN CELL VOLUME 89.3 fl (80-96); MEAN PLT VOLUME 8.7 fl (7.5-11.1); NEUTROPHILS 69.2 % (42.8-82.8); PLATELET COUNT 200 K/MM3 (134-434); RDW 14.2 % (11.6-15.6); WHITE BLOOD COUNT 6.9 K/mm3 (4.0-10.0)
--- NOTE | 2017-02-04 09:50 | PN ---
Progress Note (short form) - Note Progress Note: Attending Surgeon C/o suprapubic/RLQ discomfort; wants to eat VSS T max 100.5 abdomen-soft; mild if any suprapubic/RLQ tenderness; o/w negative. WBC-nl IMP:sigmoid diverticulitis w/smal intramural abscess PLAN: Continue present tx.; would keep NPO today and get f/u imaging early next week; will f/u. Kevin Ramos MD FACS
[2017-02-04] MEDS: GABAPENTIN 100 MG CAPSULE (FP) PO SCH ×2 (10:04→21:52)
[2017-02-04] MEDS: SODIUM CHLORIDE 1,000 ML IV SCH ×2 (10:04→17:56)
[2017-02-04] MEDS: ACLIDINIUM BROMIDE 400 MCG/INH AERO.POWD IH SCH ×2 (10:05→21:53)
--- NOTE | 2017-02-04 11:30 | PN ---
Progress Note, Physician History of Present Illness: patient stable had a spike of fever still with pain but improving - Current Medication List Current Medications: Active Medications Aclidinium [place] (Tudorza -) 1 puff IH BID YAN Last Admin: 02/04/17 10:05 Dose: Not Given Albuterol Sulfate (Ventolin 0.083% Nebulizer Soln -) 1 amp NEB Q6H PRN PRN Reason: SHORT OF BREATH/WHEEZING Last Admin: 02/04/17 10:48 Dose: 1 amp Gabapentin (Neurontin -) 300 mg PO BID YAN Last Admin: 02/04/17 10:04 Dose: 300 mg Heparin Sodium (Porcine) (Heparin -) 5,000 unit SQ Q8H-IV YAN Last Admin: 02/04/17 10:05 Dose: 5,000 unit Meropenem 1 gm/ Dextrose 100 mls @ 100 mls/hr IVPB Q8H-IV YAN PRN Reason: Protocol Last Admin: 02/04/17 11:08 Dose: 100 mls/hr Sodium Chloride (Normal Saline -) 1,000 mls @ 83 mls/hr IV ASDIR YAN Stop: 02/06/17 03:18 Last Admin: 02/04/17 10:04 Dose: 83 mls/hr Montelukast Sodium (Singulair -) 10 mg PO HS PRN PRN Reason: ASTHMA Morphine Sulfate (Morphine Injection -) 4 mg IVPUSH Q4H PRN PRN Reason: PAIN Last Admin: 02/04/17 06:23 Dose: 4 mg Non-Formulary Medication (Fluticasone/Salmeterol [Advair Hfa 230-21 Mcg Inhaler] ) 1 inh PO BID PRN PRN Reason: ASTHMA Ondansetron HCl (Zofran Injection) 4 mg IVPB Q6H PRN PRN Reason: NAUSEA Last Admin: 02/03/17 08:12 Dose: 4 mg Trazodone HCl (Desyrel -) 50 mg PO HS YAN Last Admin: 02/03/17 21:03 Dose: 50 mg - Objective Vital Signs: Vital Signs Temperature 100.5 F H 02/04/17 06:00 Pulse Rate 78 02/04/17 06:00 Respiratory Rate 18 02/04/17 06:00 Blood Pressure 105/61 02/04/17 06:00 O2 Sat by Pulse Oximetry (%) 95 02/03/17 21:00 Constitutional: Yes: Calm, Mild Distress Cardiovascular: Yes: Regular Rate and Rhythm Respiratory: Yes: Regular, CTA Bilaterally Gastrointestinal: Yes: Soft, Tenderness Musculoskeletal: Yes: WNL Extremities: Yes: WNL Neurological: Yes: Alert, Oriented Psychiatric: Yes: Alert, Oriented Labs: CBC, BMP 02/04/17 06:00 02/03/17 06:35 INR, PTT INR 1.05 (0.82-1.09) 02/02/17 11:20 Assessment/Plan patient evaluated and seen currently feeling better ac.diverticulitis abd abscess plan continue abx npo close watch continue as per surgery
--- NOTE | 2017-02-04 14:18 | PN ---
Progress Note (short form) - Note Progress Note: Subjective: The patient was seen and examined at the bedside, she is still with complaints of abdominal pain Current Medications Generic Name Dose Route Start Last Admin Trade Name Freq PRN Reason Stop Dose Admin Aclidinium [place] 1 puff 02/02/17 22:00 02/04/17 10:05 Tudorza - IH Not Given BID YAN Albuterol Sulfate 1 amp 02/03/17 10:41 02/04/17 10:48 Ventolin 0.083% Nebulizer Soln - NEB 1 amp Q6H PRN Administration SHORT OF BREATH/WHEEZING Gabapentin 300 mg 02/02/17 22:00 02/04/17 10:04 Neurontin - PO 300 mg BID YAN Administration Heparin Sodium (Porcine) 5,000 unit 02/02/17 18:00 02/04/17 10:05 Heparin - SQ 5,000 unit Q8H-IV YAN Administration Meropenem 1 gm/ Dextrose 100 mls @ 100 mls/hr 02/02/17 18:00 02/04/17 11:08 IVPB 100 mls/hr Q8H-IV YAN Administration Protocol Sodium Chloride 1,000 mls @ 83 mls/hr 02/03/17 17:49 02/04/17 10:04 Normal Saline - IV 02/06/17 03:18 83 mls/hr ASDIR YAN Administration Montelukast Sodium 10 mg 02/02/17 15:02 Singulair - PO HS PRN ASTHMA Morphine Sulfate 4 mg 02/02/17 18:18 02/04/17 06:23 Morphine Injection - IVPUSH 4 mg Q4H PRN Administration PAIN Non-Formulary Medication 1 inh 02/02/17 15:02 Fluticasone/Salmeterol [Advair Hfa 230-21 Mcg Inhaler] PO BID PRN ASTHMA Ondansetron HCl 4 mg 02/02/17 15:04 02/03/17 08:12 Zofran Injection IVPB 4 mg Q6H PRN Administration NAUSEA Trazodone HCl 50 mg 02/02/17 22:00 02/03/17 21:03 Desyrel - PO 50 mg HS YAN Administration Objective; Vital Signs Period Temp Pulse Resp BP Sys/Kaur Pulse Ox Last 24 Hr 99.1 F-101.6 F 78-99 18-20 94-128/52-67 95 Physical Exam: General: NAD, A&Ox3 Lungs: CTA bilaterally Heart: RRR, S1S2 Abd: Soft, mild diffuse tenderness. Normoactive bowel sounds Ext: Warm, well-perfused. 2+ DP/PT bilaterally Neuro: CN 2-12 intact CBCD WBC 6.9 K/mm3 (4.0-10.0) 02/04/17 06:00 RBC 4.08 M/mm3 (3.60-5.2) 02/04/17 06:00 Hgb 12.1 GM/dL (10.7-15.3) 02/04/17 06:00 Hct 36.4 % (32.4-45.2) 02/04/17 06:00 MCV 89.3 fl (80-96) 02/04/17 06:00 MCHC 33.3 g/dl (32.0-36.0) 02/04/17 06:00 RDW 14.2 % (11.6-15.6) 02/04/17 06:00 Plt Count 200 K/MM3 (134-434) 02/04/17 06:00 MPV 8.7 fl (7.5-11.1) 02/04/17 06:00 CMP Sodium 139 mmol/L (136-145) 02/03/17 06:35 Potassium 4.2 mmol/L (3.5-5.1) 02/03/17 06:35 Chloride 103 mmol/L (98-107) 02/03/17 06:35 Carbon Dioxide 30 mmol/L (21-32) 02/03/17 06:35 Anion Gap 6 (8-16) L 02/03/17 06:35 BUN 6 mg/dL (7-18) L 02/03/17 06:35 Creatinine 0.5 mg/dL (0.55-1.02) L 02/03/17 06:35 Creat Clearance w eGFR > 60 (>60) 02/03/17 06:35 Random Glucose 81 mg/dL (74-106) 02/03/17 06:35 Calcium 8.3 mg/dL (8.5-10.1) L 02/03/17 06:35 Total Bilirubin 0.4 mg/dL (0.2-1.0) D 02/03/17 06:35 AST 10 U/L (15-37) L D 02/03/17 06:35 ALT 12 U/L (12-78) 02/03/17 06:35 Alkaline Phosphatase 98 U/L (45-117) 02/03/17 06:35 Total Protein 6.7 g/dl (6.4-8.2) 02/03/17 06:35 Albumin 3.0 g/dl (3.4-5.0) L 02/03/17 06:35 Microbiology 02/02/17 15:23 Urine - Urine Clean Catch Urine Culture - Final NO GROWTH OBTAINED Imaging: CTAP: CT findings consistent with acute diverticulitis involving the sigmoid colon with an intermural abscess noted in the wall of the sigmoid colon measuring 2.1 x1.5 x1.8cm with ring enhancement noted. No drainable abscess or fluid collection in the pelvis identified. Gallbladder ultrasound: mild degree hepatomegaly with diffuse hepatic steatosis. Normal gallbladder and pancreas with no biliary dilation. No hydronephrosis or renal stones, no gallstones, normal appearance of the gallbladder. No ascites Assessment: This is a 61 year old female with PMHx of diverticulitis, admission for colonoscopy complicated by sepsis, asthma/COPD, lumbar radiculopathy and chronic back pain, and LANDEN who presented to the ED complaining of two weeks of abdominal pain. Plan: 1) GI: Recurrent sigmoid diverticulitis with abscess - WBC WNL - Continue Meropenem - Morphine prn - Zofran prn - NPO, continue for now as patient is still experiencing abdominal pain - Continue IVF until tolerating PO - CTAP tomorrow if pain not improving - Appreciate ID consult - Appreciate surgery consult 2) Pulmonary: Asthma/COPD - No active issues - Continue Advair - Continue Turdoza - Continue Singulair - Nebs prn 3) F/E/N: - Monitor electrolytes - Continue NPO status 4) Prophylaxis: - Heparin 5,000u sq tid - OOB ambulating 5) Dispo: - Requires continued inpatient care CODE STATUS: FULL CODE Visit type - Emergency Visit Emergency Visit: Yes ED Registration Date: 02/02/17 Care time: The patient presented to the Emergency Department on the above date and was hospitalized for further evaluation of their emergent condition. - New Patient This patient is new to me today: No - Critical Care Critical Care patient: No
[2017-02-04] MEDS ORDERED: morphine CARPU-JECT 4 MG/1 ML DISP.SYRIN IVPB PRN (15:06)
[2017-02-04] MEDS ORDERED: PT OWN MED DRAWER 7, Y5N ONE (16:59)
[2017-02-04] MEDS: traZODone HCL 50 MG TABLET (FP) PO SCH (21:52)
[2017-02-05] MEDS: SODIUM CHLORIDE 1,000 ML IV SCH ×2 (01:35→18:12)
[2017-02-05] MEDS: MEROPENEM 1 GM in DEXTROSE 5%-WATER 100 ML IVPB SCH ×3 (01:36→18:07)
[2017-02-05] MEDS: HEPARIN NA (PORCINE) 5,000 UNITS/ML 1ML VIAL SQ SCH ×3 (01:36→19:01)
--- NOTE | 2017-02-05 10:21 | PN ---
Progress Note (short form) - Note Progress Note: Subjective: The patient was seen and examined at the bedside, she denies any abdominal pain Current Medications Generic Name Dose Route Start Last Admin Trade Name Freq PRN Reason Stop Dose Admin Aclidinium [place] 1 puff 02/02/17 22:00 02/04/17 21:53 Tudorza - IH Not Given BID YAN Albuterol Sulfate 1 amp 02/03/17 10:41 02/04/17 22:49 Ventolin 0.083% Nebulizer Soln - NEB 1 amp Q6H PRN Administration SHORT OF BREATH/WHEEZING Gabapentin 300 mg 02/02/17 22:00 02/04/17 21:52 Neurontin - PO 300 mg BID YAN Administration Heparin Sodium (Porcine) 5,000 unit 02/02/17 18:00 02/05/17 01:36 Heparin - SQ 5,000 unit Q8H-IV YAN Administration Meropenem 1 gm/ Dextrose 100 mls @ 100 mls/hr 02/02/17 18:00 02/05/17 01:36 IVPB 100 mls/hr Q8H-IV YAN Administration Protocol Sodium Chloride 1,000 mls @ 83 mls/hr 02/03/17 17:49 02/05/17 01:35 Normal Saline - IV 02/06/17 03:18 83 mls/hr ASDIR YAN Administration Montelukast Sodium 10 mg 02/02/17 15:02 Singulair - PO HS PRN ASTHMA Morphine Sulfate 2 mg 02/04/17 15:06 02/04/17 15:19 Morphine Injection - IVPB 2 mg Q4H PRN Administration PAIN Non-Formulary Medication 1 inh 02/02/17 15:02 Fluticasone/Salmeterol [Advair Hfa 230-21 Mcg Inhaler] PO BID PRN ASTHMA Ondansetron HCl 4 mg 02/02/17 15:04 02/03/17 08:12 Zofran Injection IVPB 4 mg Q6H PRN Administration NAUSEA Trazodone HCl 50 mg 02/02/17 22:00 02/04/17 21:52 Desyrel - PO 50 mg HS YAN Administration Objective; Vital Signs Period Temp Pulse Resp BP Sys/Kaur Pulse Ox Last 24 Hr 97.8 F-99.5 F 74-86 18-18 99-119/53-67 95 Physical Exam: General: NAD, A&Ox3 Lungs: CTA bilaterally Heart: RRR, S1S2 Abd: Soft, non-tender, non-distended. Normoactive bowel sounds Ext: Warm, well-perfused. 2+ DP/PT bilaterally Neuro: CN 2-12 intact CBCD WBC 6.9 K/mm3 (4.0-10.0) 02/04/17 06:00 RBC 4.08 M/mm3 (3.60-5.2) 02/04/17 06:00 Hgb 12.1 GM/dL (10.7-15.3) 02/04/17 06:00 Hct 36.4 % (32.4-45.2) 02/04/17 06:00 MCV 89.3 fl (80-96) 02/04/17 06:00 MCHC 33.3 g/dl (32.0-36.0) 02/04/17 06:00 RDW 14.2 % (11.6-15.6) 02/04/17 06:00 Plt Count 200 K/MM3 (134-434) 02/04/17 06:00 MPV 8.7 fl (7.5-11.1) 02/04/17 06:00 CMP Sodium 139 mmol/L (136-145) 02/03/17 06:35 Potassium 4.2 mmol/L (3.5-5.1) 02/03/17 06:35 Chloride 103 mmol/L (98-107) 02/03/17 06:35 Carbon Dioxide 30 mmol/L (21-32) 02/03/17 06:35 Anion Gap 6 (8-16) L 02/03/17 06:35 BUN 6 mg/dL (7-18) L 02/03/17 06:35 Creatinine 0.5 mg/dL (0.55-1.02) L 02/03/17 06:35 Creat Clearance w eGFR > 60 (>60) 02/03/17 06:35 Random Glucose 81 mg/dL (74-106) 02/03/17 06:35 Calcium 8.3 mg/dL (8.5-10.1) L 02/03/17 06:35 Total Bilirubin 0.4 mg/dL (0.2-1.0) D 02/03/17 06:35 AST 10 U/L (15-37) L D 02/03/17 06:35 ALT 12 U/L (12-78) 02/03/17 06:35 Alkaline Phosphatase 98 U/L (45-117) 02/03/17 06:35 Total Protein 6.7 g/dl (6.4-8.2) 02/03/17 06:35 Albumin 3.0 g/dl (3.4-5.0) L 02/03/17 06:35 Microbiology 02/03/17 15:58 Blood - Peripheral Venous Blood Culture - Preliminary NO GROWTH OBTAINED AFTER 24 HOURS, INCUBATION TO CONTINUE FOR 4 DAYS. 02/03/17 15:58 Blood - Peripheral Venous Blood Culture - Preliminary NO GROWTH OBTAINED AFTER 24 HOURS, INCUBATION TO CONTINUE FOR 4 DAYS. 02/02/17 15:23 Urine - Urine Clean Catch Urine Culture - Final NO GROWTH OBTAINED Imaging: CTAP: CT findings consistent with acute diverticulitis involving the sigmoid colon with an intermural abscess noted in the wall of the sigmoid colon measuring 2.1 x1.5 x1.8cm with ring enhancement noted. No drainable abscess or fluid collection in the pelvis identified. Gallbladder ultrasound: mild degree hepatomegaly with diffuse hepatic steatosis. Normal gallbladder and pancreas with no biliary dilation. No hydronephrosis or renal stones, no gallstones, normal appearance of the gallbladder. No ascites Assessment: This is a 61 year old female with PMHx of diverticulitis, admission for colonoscopy complicated by sepsis, asthma/COPD, lumbar radiculopathy and chronic back pain, and LANDEN who presented to the ED complaining of two weeks of abdominal pain. Plan: 1) GI: Recurrent sigmoid diverticulitis with abscess - WBC WNL - Continue Meropenem - Morphine prn - Zofran prn - Continue IVF until tolerating PO - Advance diet to clear liquids - Appreciate ID consult - Appreciate surgery consult 2) : vaginal itching - Start monistat pv 3) Pulmonary: Asthma/COPD - No active issues - Continue Advair - Continue Turdoza - Continue Singulair - Nebs prn 4) F/E/N: - Monitor electrolytes - Clear liquid diet 5) Prophylaxis: - Heparin 5,000u sq tid - OOB ambulating 6) Dispo: - Requires continued inpatient care CODE STATUS: FULL CODE Visit type - Emergency Visit Emergency Visit: Yes ED Registration Date: 02/02/17 Care time: The patient presented to the Emergency Department on the above date and was hospitalized for further evaluation of their emergent condition. - New Patient This patient is new to me today: No - Critical Care Critical Care patient: No
[2017-02-05] MEDS: GABAPENTIN 100 MG CAPSULE (FP) PO SCH ×2 (10:29→21:43)
[2017-02-05] MEDS: ACLIDINIUM BROMIDE 400 MCG/INH AERO.POWD IH SCH ×2 (10:33→22:35)
--- NOTE | 2017-02-05 13:54 | PN ---
Progress Note, Physician History of Present Illness: afebrile starting to feel better no fevers - Current Medication List Current Medications: Active Medications Aclidinium [place] (Tudorza -) 1 puff IH BID REPLACED BY [facility] Last Admin: 02/05/17 10:33 Dose: Not Given Albuterol Sulfate (Ventolin 0.083% Nebulizer Soln -) 1 amp NEB Q6H PRN PRN Reason: SHORT OF BREATH/WHEEZING Last Admin: 02/04/17 22:49 Dose: 1 amp Gabapentin (Neurontin -) 300 mg PO BID YAN Last Admin: 02/05/17 10:29 Dose: 300 mg Heparin Sodium (Porcine) (Heparin -) 5,000 unit SQ Q8H-IV YAN Last Admin: 02/05/17 10:29 Dose: 5,000 unit Meropenem 1 gm/ Dextrose 100 mls @ 100 mls/hr IVPB Q8H-IV YAN PRN Reason: Protocol Last Admin: 02/05/17 10:29 Dose: 100 mls/hr Sodium Chloride (Normal Saline -) 1,000 mls @ 83 mls/hr IV ASDIR REPLACED BY [facility] Stop: 02/06/17 03:18 Last Admin: 02/05/17 01:35 Dose: 83 mls/hr Miconazole Nitrate (Monistat-7 Vaginal Suppository -) 100 mg PV HS REPLACED BY [facility] Montelukast Sodium (Singulair -) 10 mg PO HS PRN PRN Reason: ASTHMA Morphine Sulfate (Morphine Injection -) 2 mg IVPB Q4H PRN PRN Reason: PAIN Last Admin: 02/04/17 15:19 Dose: 2 mg Non-Formulary Medication (Fluticasone/Salmeterol [Advair Hfa 230-21 Mcg Inhaler] ) 1 inh PO BID PRN PRN Reason: ASTHMA Ondansetron HCl (Zofran Injection) 4 mg IVPB Q6H PRN PRN Reason: NAUSEA Last Admin: 02/03/17 08:12 Dose: 4 mg Trazodone HCl (Desyrel -) 50 mg PO HS REPLACED BY [facility] Last Admin: 02/04/17 21:52 Dose: 50 mg - Objective Vital Signs: Vital Signs Temperature 98.3 F 02/05/17 11:00 Pulse Rate 75 02/05/17 11:00 Respiratory Rate 19 02/05/17 11:00 Blood Pressure 100/57 02/05/17 11:00 O2 Sat by Pulse Oximetry (%) 94 L 02/05/17 09:00 Constitutional: Yes: No Distress, Calm Cardiovascular: Yes: Regular Rate and Rhythm Respiratory: Yes: Regular, CTA Bilaterally Gastrointestinal: Yes: Soft, Tenderness (minimal) Musculoskeletal: Yes: WNL Extremities: Yes: WNL Neurological: Yes: Alert, Oriented Psychiatric: Yes: Alert, Oriented Labs: CBC, BMP 02/04/17 06:00 02/03/17 06:35 INR, PTT INR 1.05 (0.82-1.09) 02/02/17 11:20 Assessment/Plan ac.diverticulitis abd abscess plan continue abx continue monitoring await for final plan rest as per primary team
[2017-02-05] MEDS: ALBUTEROL SO4 0.083% IH SOL 2.5 MG/3 ML VIAL.NEB. NEB PRN (18:33)
--- NOTE | 2017-02-05 18:39 | PN ---
Progress Note (short form) - Note Progress Note: Attending Surgeon No c/o; tolerating clear liquids VSS AF abdomen- soft; non tender IMP: improved PLAN advance diet as tolerated; f/u imaging. Kevin Ramos MD FACS
[2017-02-05] MEDS: traZODone HCL 50 MG TABLET (FP) PO SCH (21:43)
[2017-02-05] MEDS: MICONAZOLE NITRATE 100 MG SUPP SUPP.VAG PV SCH (22:33)
[2017-02-06] MEDS: MEROPENEM 1 GM in DEXTROSE 5%-WATER 100 ML IVPB SCH ×3 (02:23→17:26)
[2017-02-06] MEDS: HEPARIN NA (PORCINE) 5,000 UNITS/ML 1ML VIAL SQ SCH ×3 (06:20→22:00)
[2017-02-06 07:07] LABS: MCH 29.3 pg (25.7-33.7); MCHC 33.5 g/dl (32.0-36.0); MEAN CELL VOLUME 87.7 fl (80-96); MEAN PLT VOLUME 8.2 fl (7.5-11.1); PLATELET COUNT 202 K/MM3 (134-434); RDW 13.8 % (11.6-15.6); WHITE BLOOD COUNT 4.9 K/mm3 (4.0-10.0)
[2017-02-06 07:39] LABS: ALBUMIN 2.7 g/dl (3.4-5.0); ANION GAP 4 (8-16); BILIRUBIN,TOTAL 0.3 mg/dL (0.2-1.0); CALCIUM 8.4 mg/dL (8.5-10.1); CO2 29 mmol/L (21-32); GLUCOSE,RANDOM 83 mg/dL (74-106); SGOT/AST 18 U/L (15-37); SGPT/ALT 17 U/L (12-78); TOT PROT 5.8 g/dl (6.4-8.2)
[2017-02-06 07:40] LABS: ALK PHOS 79 U/L (45-117); CREATININE 0.3 mg/dL (0.55-1.02)
[2017-02-06] MEDS: ACLIDINIUM BROMIDE 400 MCG/INH AERO.POWD IH SCH ×2 (10:00→22:00)
[2017-02-06] MEDS ORDERED: diphenhydrAMINE HCL 25 MG CAPSULE (FP) PO ONE (10:12)
[2017-02-06] MEDS: GABAPENTIN 100 MG CAPSULE (FP) PO SCH ×2 (14:00→22:00)
--- NOTE | 2017-02-06 14:17 | PN ---
Progress Note, Physician History of Present Illness: patient doing well no new issues abd pain better - Current Medication List Current Medications: Active Medications Aclidinium [place] (Tudorza -) 1 puff IH BID [facility] Last Admin: 02/06/17 10:00 Dose: Not Given Albuterol Sulfate (Ventolin 0.083% Nebulizer Soln -) 1 amp NEB Q6H PRN PRN Reason: SHORT OF BREATH/WHEEZING Last Admin: 02/05/17 18:33 Dose: 1 amp Gabapentin (Neurontin -) 300 mg PO BID [facility] Last Admin: 02/06/17 14:00 Dose: 300 mg Heparin Sodium (Porcine) (Heparin -) 5,000 unit SQ TID [facility] Last Admin: 02/06/17 14:01 Dose: 5,000 unit Meropenem 1 gm/ Dextrose 100 mls @ 100 mls/hr IVPB Q8H-IV YAN PRN Reason: Protocol Last Admin: 02/06/17 10:03 Dose: 100 mls/hr Miconazole Nitrate (Monistat-7 Vaginal Suppository -) 100 mg PV [facility] Stop: 02/11/17 22:01 Last Admin: 02/05/17 22:33 Dose: 1 supp.vag Montelukast Sodium (Singulair -) 10 mg PO HS PRN PRN Reason: ASTHMA Morphine Sulfate (Morphine Injection -) 2 mg IVPB Q4H PRN PRN Reason: PAIN Last Admin: 02/04/17 15:19 Dose: 2 mg Non-Formulary Medication (Fluticasone/Salmeterol [Advair Hfa 230-21 Mcg Inhaler] ) 1 inh PO BID PRN PRN Reason: ASTHMA Ondansetron HCl (Zofran Injection) 4 mg IVPB Q6H PRN PRN Reason: NAUSEA Last Admin: 02/03/17 08:12 Dose: 4 mg Trazodone HCl (Desyrel -) 50 mg PO [facility] Last Admin: 02/05/17 21:43 Dose: 50 mg - Objective Vital Signs: Vital Signs Temperature 97.9 F 02/06/17 10:00 Pulse Rate 65 02/06/17 11:31 Respiratory Rate 20 02/06/17 10:00 Blood Pressure 120/84 02/06/17 10:00 O2 Sat by Pulse Oximetry (%) 96 02/06/17 11:31 Constitutional: Yes: No Distress, Calm Cardiovascular: Yes: Regular Rate and Rhythm Respiratory: Yes: Regular, CTA Bilaterally Gastrointestinal: Yes: Normal Bowel Sounds, Soft Musculoskeletal: Yes: WNL Extremities: Yes: WNL Neurological: Yes: Alert, Oriented Labs: CBC, BMP 02/06/17 06:25 02/06/17 06:25 INR, PTT INR 1.05 (0.82-1.09) 02/02/17 11:20 Assessment/Plan ac.diverticulitis abd abscess patient tolerating liquids plan continue abx continue monitoring await for final plan rest as per primary team
--- NOTE | 2017-02-06 16:31 | PN ---
Progress Note (short form) - Note Progress Note: Subjective: The patient was seen at the bedside, she was sleeping x2 Current Medications Generic Name Dose Route Start Last Admin Trade Name Freq PRN Reason Stop Dose Admin Aclidinium [place] 1 puff 02/02/17 22:00 02/06/17 10:00 Tudorza - IH Not Given BID YAN Albuterol Sulfate 1 amp 02/03/17 10:41 02/05/17 18:33 Ventolin 0.083% Nebulizer Soln - NEB 1 amp Q6H PRN Administration SHORT OF BREATH/WHEEZING Gabapentin 300 mg 02/02/17 22:00 02/06/17 14:00 Neurontin - PO 300 mg BID YAN Administration Heparin Sodium (Porcine) 5,000 unit 02/06/17 06:00 02/06/17 14:01 Heparin - SQ 5,000 unit TID YAN Administration Meropenem 1 gm/ Dextrose 100 mls @ 100 mls/hr 02/02/17 18:00 02/06/17 10:03 IVPB 100 mls/hr Q8H-IV YAN Administration Protocol Miconazole Nitrate 100 mg 02/05/17 22:00 02/05/17 22:33 Monistat-7 Vaginal Suppository - PV 02/11/17 22:01 1 supp.vag HS YAN Administration Montelukast Sodium 10 mg 02/02/17 15:02 Singulair - PO HS PRN ASTHMA Morphine Sulfate 2 mg 02/04/17 15:06 02/04/17 15:19 Morphine Injection - IVPB 2 mg Q4H PRN Administration PAIN Non-Formulary Medication 1 inh 02/02/17 15:02 Fluticasone/Salmeterol [Advair Hfa 230-21 Mcg Inhaler] PO BID PRN ASTHMA Ondansetron HCl 4 mg 02/02/17 15:04 02/03/17 08:12 Zofran Injection IVPB 4 mg Q6H PRN Administration NAUSEA Trazodone HCl 50 mg 02/02/17 22:00 02/05/17 21:43 Desyrel - PO 50 mg HS YAN Administration Objective; Vital Signs Period Temp Pulse Resp BP Sys/Kaur Pulse Ox Last 24 Hr 97.9 F-98.9 F 64-85 20-20 100-151/52-84 96-99 Physical Exam: Patient sleeping CBCD WBC 4.9 K/mm3 (4.0-10.0) 02/06/17 06:25 RBC 3.94 M/mm3 (3.60-5.2) 02/06/17 06:25 Hgb 11.6 GM/dL (10.7-15.3) 02/06/17 06:25 Hct 34.6 % (32.4-45.2) 02/06/17 06:25 MCV 87.7 fl (80-96) 02/06/17 06:25 MCHC 33.5 g/dl (32.0-36.0) 02/06/17 06:25 RDW 13.8 % (11.6-15.6) 02/06/17 06:25 Plt Count 202 K/MM3 (134-434) 02/06/17 06:25 MPV 8.2 fl (7.5-11.1) 02/06/17 06:25 CMP Sodium 142 mmol/L (136-145) 02/06/17 06:25 Potassium 3.9 mmol/L (3.5-5.1) 02/06/17 06:25 Chloride 109 mmol/L (98-107) H 02/06/17 06:25 Carbon Dioxide 29 mmol/L (21-32) 02/06/17 06:25 Anion Gap 4 (8-16) L 02/06/17 06:25 BUN 4 mg/dL (7-18) L D 02/06/17 06:25 Creatinine 0.3 mg/dL (0.55-1.02) L D 02/06/17 06:25 Creat Clearance w eGFR > 60 (>60) 02/06/17 06:25 Random Glucose 83 mg/dL (74-106) 02/06/17 06:25 Calcium 8.4 mg/dL (8.5-10.1) L 02/06/17 06:25 Total Bilirubin 0.3 mg/dL (0.2-1.0) D 02/06/17 06:25 AST 18 U/L (15-37) D 02/06/17 06:25 ALT 17 U/L (12-78) D 02/06/17 06:25 Alkaline Phosphatase 79 U/L (45-117) 02/06/17 06:25 Total Protein 5.8 g/dl (6.4-8.2) L 02/06/17 06:25 Albumin 2.7 g/dl (3.4-5.0) L 02/06/17 06:25 Microbiology 02/03/17 15:58 Blood - Peripheral Venous Blood Culture - Preliminary NO GROWTH OBTAINED AFTER 72 HOURS, INCUBATION TO CONTINUE FOR 2 DAYS. 02/03/17 15:58 Blood - Peripheral Venous Blood Culture - Preliminary NO GROWTH OBTAINED AFTER 72 HOURS, INCUBATION TO CONTINUE FOR 2 DAYS. 02/02/17 15:23 Urine - Urine Clean Catch Urine Culture - Final NO GROWTH OBTAINED Imaging: CTAP: CT findings consistent with acute diverticulitis involving the sigmoid colon with an intermural abscess noted in the wall of the sigmoid colon measuring 2.1 x1.5 x1.8cm with ring enhancement noted. No drainable abscess or fluid collection in the pelvis identified. Gallbladder ultrasound: mild degree hepatomegaly with diffuse hepatic steatosis. Normal gallbladder and pancreas with no biliary dilation. No hydronephrosis or renal stones, no gallstones, normal appearance of the gallbladder. No ascites Assessment: This is a 61 year old female with PMHx of diverticulitis, admission for colonoscopy complicated by sepsis, asthma/COPD, lumbar radiculopathy and chronic back pain, and LANDEN who presented to the ED complaining of two weeks of abdominal pain. Plan: 1) GI: Recurrent sigmoid diverticulitis with abscess - WBC WNL - Continue Meropenem - Morphine prn - Zofran prn - Continue IVF until tolerating PO - Advance diet as tolerated - Appreciate ID consult - Appreciate surgery consult 2) : vaginal itching - Continue monistat pv 3) Pulmonary: Asthma/COPD - No active issues - Continue Advair - Continue Turdoza - Continue Singulair - Nebs prn 4) F/E/N: - Monitor electrolytes - Clear liquid diet 5) Prophylaxis: - Heparin 5,000u sq tid - OOB ambulating 6) Dispo: - Requires continued inpatient care CODE STATUS: FULL CODE
[2017-02-06] MEDS ORDERED: PT OWN MED DRAWER 7, Y5N ONE ×2 (17:23→22:22)
[2017-02-06] MEDS: traZODone HCL 50 MG TABLET (FP) PO SCH (22:00)
[2017-02-06] MEDS: MICONAZOLE NITRATE 100 MG SUPP SUPP.VAG PV SCH (22:26)
[2017-02-07] MEDS ORDERED: PT OWN MED DRAWER 7, Y5N ONE ×3 (01:39→17:21)
[2017-02-07] MEDS: MEROPENEM 1 GM in DEXTROSE 5%-WATER 100 ML IVPB SCH ×3 (01:53→18:30)
[2017-02-07] MEDS: HEPARIN NA (PORCINE) 5,000 UNITS/ML 1ML VIAL SQ SCH ×3 (06:36→21:37)
[2017-02-07] MEDS ORDERED: HYDROCORTISONE 1% TOPICAL CREAM 30 GM TUBE TP PRN (10:13)
[2017-02-07] MEDS: GABAPENTIN 100 MG CAPSULE (FP) PO SCH ×2 (10:42→21:37)
[2017-02-07] MEDS: ACLIDINIUM BROMIDE 400 MCG/INH AERO.POWD IH SCH ×2 (10:43→21:36)
[2017-02-07] MEDS ORDERED: diphenhydrAMINE HCL 25 MG CAPSULE (FP) PO ONE (11:00)
--- NOTE | 2017-02-07 14:17 | PN ---
Progress Note, Physician History of Present Illness: pain minimal patient feeling much better - Current Medication List Current Medications: Active Medications Aclidinium [place] (Tudorza -) 1 puff IH BID [facility] Last Admin: 02/07/17 10:43 Dose: Not Given Albuterol Sulfate (Ventolin 0.083% Nebulizer Soln -) 1 amp NEB Q6H PRN PRN Reason: SHORT OF BREATH/WHEEZING Last Admin: 02/05/17 18:33 Dose: 1 amp Gabapentin (Neurontin -) 300 mg PO BID [facility] Last Admin: 02/07/17 10:42 Dose: 300 mg Heparin Sodium (Porcine) (Heparin -) 5,000 unit SQ TID [facility] Last Admin: 02/07/17 06:36 Dose: 5,000 unit Hydrocortisone (Hytone 1% Cream -) 1 applic TP BID PRN PRN Reason: FOR ITCHING Meropenem 1 gm/ Dextrose 100 mls @ 100 mls/hr IVPB Q8H-IV YAN PRN Reason: Protocol Last Admin: 02/07/17 10:42 Dose: 100 mls/hr Loratadine (Claritin -) 10 mg PO DAILY [facility] Miconazole Nitrate (Monistat-7 Vaginal Suppository -) 100 mg PV [facility] Stop: 02/11/17 22:01 Last Admin: 02/06/17 22:26 Dose: 1 supp.vag Montelukast Sodium (Singulair -) 10 mg PO HS PRN PRN Reason: ASTHMA Morphine Sulfate (Morphine Injection -) 2 mg IVPB Q4H PRN PRN Reason: PAIN Last Admin: 02/04/17 15:19 Dose: 2 mg Non-Formulary Medication (Fluticasone/Salmeterol [Advair Hfa 230-21 Mcg Inhaler] ) 1 inh PO BID PRN PRN Reason: ASTHMA Ondansetron HCl (Zofran Injection) 4 mg IVPB Q6H PRN PRN Reason: NAUSEA Last Admin: 02/03/17 08:12 Dose: 4 mg Trazodone HCl (Desyrel -) 50 mg PO [facility] Last Admin: 02/06/17 22:00 Dose: 50 mg - Objective Vital Signs: Vital Signs Temperature 98.5 F 02/07/17 10:00 Pulse Rate 77 02/07/17 10:03 Respiratory Rate 18 02/07/17 10:00 Blood Pressure 105/63 02/07/17 10:00 O2 Sat by Pulse Oximetry (%) 96 02/07/17 10:03 Constitutional: Yes: No Distress, Calm Neck: Yes: Supple, Trachea Midline Gastrointestinal: Yes: Normal Bowel Sounds, Soft Musculoskeletal: Yes: WNL Extremities: Yes: WNL Integumentary: Yes: WNL Neurological: Yes: Alert, Oriented Psychiatric: Yes: Alert, Oriented Labs: CBC, BMP 02/06/17 06:25 02/06/17 06:25 INR, PTT INR 1.05 (0.82-1.09) 02/02/17 11:20 Assessment/Plan ac.diverticulitis abd abscess patient tolerating liquids plan continue abx continue monitoring await for final plan rest as per primary team
--- NOTE | 2017-02-07 17:56 | PN ---
Physical Exam: SUBJECTIVE: Patient seen and examined. She is hungry for solid food. Tolerating clears well. OBJECTIVE: Vital Signs Period Temp Pulse Resp BP Sys/Kaur Pulse Ox Last 24 Hr 97.8 F-99.8 F 70-83 18-20 99-142/51-88 96-96 PE Neuro: alert, awake, cn 2-12intact Pulm: CTAB CV: s1 s2 no mrg Abs: s nt nd +bs Ext: warm, no le edema Active Medications Generic Name Dose Route Start Last Admin Trade Name Freq PRN Reason Stop Dose Admin Aclidinium [place] 1 puff 02/02/17 22:00 02/07/17 10:43 Tudorza - IH Not Given BID YAN Albuterol Sulfate 1 amp 02/03/17 10:41 02/05/17 18:33 Ventolin 0.083% Nebulizer Soln - NEB 1 amp Q6H PRN Administration SHORT OF BREATH/WHEEZING Gabapentin 300 mg 02/02/17 22:00 02/07/17 10:42 Neurontin - PO 300 mg BID YAN Administration Heparin Sodium (Porcine) 5,000 unit 02/06/17 06:00 02/07/17 15:43 Heparin - SQ 5,000 unit TID YAN Administration Hydrocortisone 1 applic 02/07/17 10:13 Hytone 1% Cream - TP BID PRN FOR ITCHING Meropenem 1 gm/ Dextrose 100 mls @ 100 mls/hr 02/02/17 18:00 02/07/17 10:42 IVPB 100 mls/hr Q8H-IV YAN Administration Protocol Loratadine 10 mg 02/08/17 10:00 Claritin - PO DAILY YAN Miconazole Nitrate 100 mg 02/05/17 22:00 02/06/17 22:26 Monistat-7 Vaginal Suppository - PV 02/11/17 22:01 1 supp.vag HS YAN Administration Montelukast Sodium 10 mg 02/02/17 15:02 Singulair - PO HS PRN ASTHMA Non-Formulary Medication 1 inh 02/02/17 15:02 Fluticasone/Salmeterol [Advair Hfa 230-21 Mcg Inhaler] PO BID PRN ASTHMA Ondansetron HCl 4 mg 02/02/17 15:04 02/03/17 08:12 Zofran Injection IVPB 4 mg Q6H PRN Administration NAUSEA Trazodone HCl 50 mg 02/02/17 22:00 02/06/17 22:00 Desyrel - PO 50 mg HS YAN Administration Imaging: - CTAP: CT findings consistent with acute diverticulitis involving the sigmoid colon with an intermural abscess noted in the wall of the sigmoid colon measuring 2.1 x1.5 x1.8cm with ring enhancement noted. No drainable abscess or fluid collection in the pelvis identified. - Gallbladder US: mild degree hepatomegaly with diffuse hepatic steatosis. Normal gallbladder and pancreas with no biliary dilation. No hydronephrosis or renal stones, no gallstones, normal appearance of the gallbladder. No ascites Assessment: 61 year old female with PMHx of diverticulitis, admission for colonoscopy complicated by sepsis, asthma/COPD, lumbar radiculopathy and chronic back pain, and LANDEN admitted two weeks of abdominal pain. Plan: 1. Recurrent sigmoid diverticulitis with abscess - Continue Meropenem until midnight - Transition to Augmentin and flagyl in AM - Monitor reaction to Augmentin, pt says she has taken PCN - Start low fiber diet 2. Vaginal itching - Continue Monistat pv 3. Asthma/COPD - Not in exacerbation - Continue Advair - Continue Turdoza - Continue Singulair 4. Prophylaxis: - Heparin 5,000u sq tid Visit type - Emergency Visit Emergency Visit: Yes ED Registration Date: 02/02/17 Care time: The patient presented to the Emergency Department on the above date and was hospitalized for further evaluation of their emergent condition. - New Patient This patient is new to me today: Yes Date on this admission: 02/07/17 - Critical Care Critical Care patient: No
[2017-02-07] MEDS: traZODone HCL 50 MG TABLET (FP) PO SCH (21:36)
[2017-02-07] MEDS: MICONAZOLE NITRATE 100 MG SUPP SUPP.VAG PV SCH (21:37)
[2017-02-08] MEDS: HEPARIN NA (PORCINE) 5,000 UNITS/ML 1ML VIAL SQ SCH (06:38)
[2017-02-08] MEDS ORDERED: AMOX TR/POT CLAV 875MG/125MG TABLETS (FP) PO SCH (08:00)
[2017-02-08] MEDS ORDERED: metroNIDAZOLE 250 MG TABLET PO SCH ×2 (08:00→10:00)
[2017-02-08] MEDS: ACLIDINIUM BROMIDE 400 MCG/INH AERO.POWD IH SCH (09:26)
[2017-02-08] MEDS: GABAPENTIN 100 MG CAPSULE (FP) PO SCH (09:26)
[2017-02-08] MEDS ORDERED: LORATADINE 10 MG TABLET PO SCH (10:00)
[2017-02-08] MEDS ORDERED: PT OWN MED DRAWER 7, Y5N ONE (11:18)
--- NOTE | 2017-02-08 11:27 | DS ---
Physical Exam: SUBJECTIVE: Patient seen and examined. She feels well she is eager to go home . events: - Following shower pt with acute diffuse erythema, states she is allergic to the cold and the shower was cold. Upon my eval on discharge skin was clear and returned to baseline. OBJECTIVE: Vital Signs Period Temp Pulse Resp BP Sys/Kaur Pulse Ox Last 24 Hr 97.5 F-99.4 F 67-92 20-20 104-124/65-73 95 PE Neuro: alert, awake, cn 2-12intact Pulm: CTAB CV: s1 s2 no mrg Abs: s nt nd +bs Ext: warm, no le edema HOSPITAL COURSE: Date of Admission:02/02/17 Date of Discharge: 02/08/17 Minutes to complete discharge: 36 Discharge Summary Reason For Visit: DIVERTICULITIS OF INTESTINE Current Active Problems Acute diverticulitis (Acute) Bronchitis (Acute) Cough variant asthma (Acute) DVT prophylaxis (Acute) Diverticulitis of intestine with abscess (Acute) Herpes zoster (Acute) Persistent vomiting (Acute) Wheezing (Acute) Hospital Course: Initial Hospital Course: Briefly, this 61 year old female with a history of diverticulitis (3 prior episodes), admission for colonoscopy complicated by sepsis, asthma/COPD, lumbar radiculopathy and chronic back pain, and LANDEN presented to the ED complaining of two weeks of abdominal pain (worst in RLQ), now with nausea and low grade fever (100.0 at home). Imaging: - CTAP: CT findings consistent with acute diverticulitis involving the sigmoid colon with an intermural abscess noted in the wall of the sigmoid colon measuring 2.1 x1.5 x1.8cm with ring enhancement noted. No drainable abscess or fluid collection in the pelvis identified. - Gallbladder US: mild degree hepatomegaly with diffuse hepatic steatosis. Normal gallbladder and pancreas with no biliary dilation. No hydronephrosis or renal stones, no gallstones, normal appearance of the gallbladder. No ascites Subsequent Hospital Course/Progress Note/Discharge Summary : Assessment: 61 year old female with PMHx of diverticulitis, admission for colonoscopy complicated by sepsis, asthma/COPD, lumbar radiculopathy and chronic back pain, and LANDEN admitted two weeks of abdominal pain. Plan: 1. Recurrent sigmoid diverticulitis with abscess - s/p meropenem 5 days - Home with augmentin and flagul x 10 days - No reaction to AM augmentin - Follow up with Dr. Hernandez and surgery referral placed for possible resection 2. Vaginal itching - Continue Monistat pv x 7days total 3. Asthma/COPD - Not in exacerbation - Continue Advair - Continue Turdoza - Continue Singulair Dispo: - home with above meds and abx with follow up - pt aware and agrees to above plan Condition: Stable - Instructions Diet, Activity, Other Instructions: Please return to the ED for any new, persistent, or worsening symptoms. Follow up with your PCP in 1 week Take medication as directed Complete antibiotics as directed and until completed Resume home meds as directed Follow up with GI in 1 week for continued management, surgery referral enclosed Referrals: Ashley Shah [Primary Care Provider] - Dima Hernandez MD [Staff Physician] - 1 Week (follow up in 1 week ) Kevin Ramos MD [Staff Physician] - 1 Week (Follow up for possible surgery eval of sigmoid resection) Disposition: HOME - Home Medications Comprehensive Discharge Medication List: Ambulatory Orders Albuterol Sulfate [Proventil HFA Inhaler -] 1 - 2 inh PO TID PRN 04/06/16 Fluticasone/Salmeterol [Advair Hfa 230-21 Mcg Inhaler] 1 inh PO BID PRN Gabapentin [Neurontin -] 300 mg PO BID 04/06/16 Montelukast Na [Singulair -] 10 mg PO DAILY PRN 04/06/16 Tiotropium [place] [Spiriva] 1 inh PO TID PRN 04/06/16 Trazodone HCl [Desyrel -] 50 mg PO HS 04/06/16 Sumatriptan Succinate [Imitrex -] 100 mg PO ONCE #10 tablet MDD 200mg 07/05/16 Cetirizine HCl 10 mg PO PRN 02/06/17 Amoxicillin/Potassium Clav [Augmentin 875-125 Tablet] 1 each PO BID #19 tablet 02/08/17 Lactobacillus Acidophilus [Bacid -] 1 each PO DAILY #10 capsule 02/08/17 Metronidazole [Flagyl -] 500 mg PO TID #29 tablet 02/08/17 Miconazole Nitrate [Monistat-7] 100 mg PV HS #4 supp.vag 02/08/17 This patient is new to me today: No Emergency Visit: Yes ED Registration Date: 02/02/17 Care time: The patient presented to the Emergency Department on the above date and was hospitalized for further evaluation of their emergent condition. Critical Care patient: No - Discharge Referral Referred to [facility] No
[2017-02-08 11:58] VITALS: BP 113/59; PULSE 77; TEMP 96.4
== END 2017-02-08 11:47 | disposition home or self-care (01) | DRG 392 ==
LOC: JER 10:56 → JERBED 14:46 → J5S 17:47
PROVIDERS: ADMIT Internal Medicine; ATTEND Nurse Practitioner Acute Care
DX: K57.80 Diverticulitis of intestine, part unspecified, with perforation and abscess without bleeding (principal); J44.9 Chronic obstructive pulmonary disease, unspecified; J45.909 Unspecified asthma, uncomplicated
CPT/HCPCS: 36415; 74177-TC; 76705-TC; 80053; 81003; 81015; 83690; 85025; 85027; 85610; 87040; 87086; 94640; 99282-25; J1644; Q9967

== ENCOUNTER 2017-04-11 18:48 | Emergency (ER) | payer OTHER ==
[2017-04-11 19:00] VITALS: BP 137/82; PULSE 98; TEMP 98.4; BMI 25.4
--- NOTE | 2017-04-11 20:04 | PDOC ---
History of Present Illness - General History Source: Patient Exam Limitations: No Limitations - History of Present Illness Initial Comments: 04/11/17 20:42 The patient is a 62 year old female with a significant past medical history of asthma, COPD, and diverticulitis, who presents to the emergency department with cough, shortness of breath and fever for approximately 3 days. Patient reports her TMax was 103 F yesterday. She reports her cough and shortness of breath are typical of her asthma exacerbation episodes. Patient reports associated rhinorrhea and chills but denies any sore throat, headache, or dizziness. Patient reports some joint pain which is part of her baseline. She denies any chest pain, diaphoresis, palpitations, or lower extremity edema. She denies any abdominal pain, nausea, vomiting, diarrhea, or constipation. Patient reports recent contact with her sister who returned from [place] and had a fever. Patient reports during the last time she experienced similar symptoms, she was started on steroids, but developed shingles around her eyes. Patient refuses steroids at this time Allergies: Cefaclor, Azithromycin, latex, levofloxacin Past Surgical History: L knee x2, L foot bone spur sx, bilateral elbow sx Social History: Former smoker. No ETOH or recreational drug use. PCP: Dr. Ashley Shah <Jeff Liu - Last Filed: 04/11/17 21:05> <Luis Jordan - Last Filed: 04/11/17 22:38> - General Chief Complaint: Respiratory Stated Complaint: ASTHMA Time Seen by Provider: 04/11/17 20:04 Past History <Jeff Liu - Last Filed: 04/11/17 21:05> - Past Medical History Anemia: No Asthma: Yes Cancer: No Cardiac Disorders: No CVA: No COPD: Yes (pneumonia) CHF: No Dementia: No Diabetes: No GI Disorders: Yes (Diverticulitis, Polyps) Disorders: No HTN: No Hypercholesterolemia: No Liver Disease: No Seizures: No Thyroid Disease: No - Surgical History Abdominal Surgery: No Appendectomy: No Cardiac Surgery: No Cholecystectomy: No Lung Surgery: No Neurologic Surgery: No Orthopedic Surgery: Yes (L knee x2, L foot bone spur sx, bilateral elbow sx) - Immunization History Immunization Up to Date: Yes - Suicide/Smoking/Psychosocial Hx Smoking History: Former smoker Have you smoked in the past 12 months: No If you are a former smoker, when did you quit?: 17 YRS Information on smoking cessation initiated: No Hx Alcohol Use: No Drug/Substance Use Hx: No Substance Use Type: None Hx Substance Use Treatment: No <Luis Jordan - Last Filed: 04/11/17 22:38> - Past Medical History Allergies/Adverse Reactions: Allergies Allergy/AdvReac Type Severity Reaction Status Date / Time cefaclor [From Ceclor] Allergy Severe Difficulty Verified 04/11/17 19:00 Breathing azithromycin [From Zithromax] Allergy Intermediate Rash Verified 04/11/17 19:00 latex Allergy Mild Rash Verified 04/11/17 19:00 levofloxacin [From Levaquin] Allergy Mild Rash Verified 04/11/17 19:00 Home Medications: Ambulatory Orders Albuterol Sulfate [Proventil HFA Inhaler -] 1 - 2 inh PO TID PRN 04/06/16 Fluticasone/Salmeterol [Advair Hfa 230-21 Mcg Inhaler] 1 inh PO BID PRN Gabapentin [Neurontin -] 300 mg PO BID 04/06/16 Montelukast Na [Singulair -] 10 mg PO DAILY PRN 04/06/16 Tiotropium [place] [Spiriva] 1 inh PO TID PRN 04/06/16 Trazodone HCl [Desyrel -] 50 mg PO HS 04/06/16 Sumatriptan Succinate [Imitrex -] 100 mg PO ONCE #10 tablet MDD 200mg 07/05/16 Cetirizine HCl 10 mg PO PRN 02/06/17 Amoxicillin/Potassium Clav [Augmentin 875-125 Tablet] 1 each PO BID #19 tablet 02/08/17 Lactobacillus Acidophilus [Bacid -] 1 each PO DAILY #10 capsule 02/08/17 Metronidazole [Flagyl -] 500 mg PO TID #29 tablet 02/08/17 Miconazole Nitrate [Monistat-7] 100 mg PV HS #4 supp.vag 02/08/17 Doxycycline Hyclate [Vibratab -] 100 mg PO BID #14 tablet 04/11/17 Prednisone [Prednisone 50 MG TABLETS] 50 mg PO DAILY #5 tablet 04/11/17 Valacyclovir HCl [Valtrex -] 1,000 mg PO TID #21 tablet 04/11/17 Respiratory Specific PMHX - Complaint Specific PMHX Bronchitis: Yes Pneumonia: Yes <Luis Jordan - Last Filed: 04/11/17 22:38> Review of Systems - Review of Systems Able to Perform ROS?: Yes Comments:: 04/11/17 20:42 CONSTITUTIONAL: Present: fever, chills Absent: no fatigue EYES: Absent: visual changes ENT: Present: rhinorrhea Absent: ear pain, no sore throat CARDIOVASCULAR: Absent: chest pain, no palpitations RESPIRATORY: Present: cough, SOB GI: Absent: abdominal pain, no nausea, no vomiting, no constipation, no diarrhea GENITOURINARY: Absent: dysuria, no frequency, no hematuria MUSKULOSKELETAL: Present: joint pain Absent: back pain, no myalgia SKIN: Absent: rash NEURO: Absent: headache <Jeff Liu - Last Filed: 04/11/17 21:05> *Physical Exam - Vital Signs Last Vital Signs Temp Pulse Resp BP Pulse Ox 98.4 F 98 H 22 137/82 96 04/11/17 18:57 04/11/17 18:57 04/11/17 18:57 04/11/17 18:57 04/11/17 18:57 - Physical Exam Comments: 04/11/17 20:42 GENERAL: Mildly tachypneic. Well-appearing, well-nourished. HEENT: Normocephalic, atraumatic. PERRL, EOM intact. CARDIOVASCULAR: Normal S1, S2. Regular rate and rhythm. PULMONARY: Diffuse rhonchi in all lung chaudhry. ABDOMEN: Soft, non-distended, non-tender. EXTREMITIES: Normal ROM in all four extremities. No gross deformities. SKIN: Warm, dry. No rash NEUROLOGICAL: No focal neurological deficits. <Jeff Liu - Last Filed: 04/11/17 21:05> - Vital Signs Last Vital Signs Temp Pulse Resp BP Pulse Ox 98.4 F 98 H 22 137/82 96 04/11/17 18:57 04/11/17 18:57 04/11/17 18:57 04/11/17 18:57 04/11/17 18:57 <Luis Jordan - Last Filed: 04/11/17 22:38> ED Treatment Course - LABORATORY CBC & Chemistry Diagram: 04/11/17 20:29 04/11/17 20:29 - ADDITIONAL ORDERS Additional order review: 04/11/17 20:29 RBC 4.21 MCV 87.9 MCHC 33.7 RDW 15.0 MPV 8.1 Neutrophils % 55.7 Lymphocytes % 27.8 Monocytes % 10.7 H D Eosinophils % 4.9 H D Basophils % 0.9 - Medications Given in the ED: ED Medications Discontinued Medications Generic Name Dose Route Start Last Admin Trade Name [place] PRN Reason Stop Dose Admin Albuterol/Ipratropium 3 amp 04/11/17 20:12 04/11/17 20:21 Duoneb - NEB 04/11/17 20:13 3 amp ONCE ONE Administration <Jeff Liu - Last Filed: 04/11/17 21:05> - LABORATORY CBC & Chemistry Diagram: 04/11/17 20:29 04/11/17 20:29 <Luis Jordan - Last Filed: 04/11/17 22:38> Medical Decision Making - Medical Decision Making 04/11/17 22:36 62-year-old female with history of asthma/COPD presents to the ER with acute exacerbation that has not responded to treatment with nebulized albuterol. In the ER, patient is noted to be awake and alert, afebrile, mildly dyspneic initial evaluation. Patient has received Combivent therapy, and after initially refusing prednisone, was given 60 mg of prednisone and 1000 mg of Valtrex due to previous episodes of ocular shingles related to steroid therapy. Chest x-ray revealed no evidence of acute infiltrate or effusion. CBC/CMP was noted to be within normal limit. After treatments, patient's symptoms had resolved, her ocular saturation is noted to be 98% on room air and patient is able to ambulate without difficulty and speak in full sentences without dyspnea. Will discharge with continuous albuterol, prednisone by mouth, Valtrex by mouth, and doxycycline for suspected atypical bacterial coverage likely causing the acute exacerbation of COPD. Patient will follow-up with PMD in 24 hours. <Luis Jordan - Last Filed: 04/11/17 22:38> *DC/Admit/Observation/Transfer - Attestations Scribe Attestion: 04/11/17 20:42 Documentation prepared by Jeff Liu, acting as emergency medicine medical director for Luis Jordan MD. <Jeff Liu - Last Filed: 04/11/17 21:05> - Attestations Physician Attestion: 04/11/17 22:33 The documentation was prepared by the scribe under my direct supervision. I have reviewed the documentation which correctly represents the findings, medical decision-making and critical action taken by me. <Luis Jordan - Last Filed: 04/11/17 22:38> Diagnosis at time of Disposition: Acute exacerbation of chronic obstructive pulmonary disease (COPD) - Discharge Dispostion Disposition: HOME Condition at time of disposition: Stable - Referrals Referrals: Ashley Shah [Primary Care Provider] - - Patient Instructions Printed Discharge Instructions: DI for Acute Bronchitis, DI for Chronic Obstructive Pulmonary Disease
[2017-04-11] MEDS ORDERED: ALBUTEROL SO4 2.5/IPRATROPIUM 0.5 INH SOL 3 ML VIAL.NEB. NEB ONE ×2 (20:12→20:18)
[2017-04-11 20:35] LABS: BASOPHIL 0.9 % (0-2.0); EOSINOPHIL 4.9 % (0-4.5); MCH 29.6 pg (25.7-33.7); MCHC 33.7 g/dl (32.0-36.0); MEAN CELL VOLUME 87.9 fl (80-96); MEAN PLT VOLUME 8.1 fl (7.5-11.1); NEUTROPHILS 55.7 % (42.8-82.8); PLATELET COUNT 188 K/MM3 (134-434)
[2017-04-11 21:07] LABS: ALBUMIN 3.3 g/dl (3.4-5.0); ANION GAP 5 (8-16); CALCIUM 8.8 mg/dL (8.5-10.1); CO2 29 mmol/L (21-32); CREATININE 0.9 mg/dL (0.55-1.02); GLUCOSE,RANDOM 104 mg/dL (74-106); SGOT/AST 14 U/L (15-37); SGPT/ALT 20 U/L (12-78)
[2017-04-11 21:08] LABS: ALK PHOS 87 U/L (45-117); BILIRUBIN,TOTAL 0.3 mg/dL (0.2-1.0); TOT PROT 7.1 g/dl (6.4-8.2)
[2017-04-11] MEDS ORDERED: predniSONE 20 MG TABLET (UD) PO ONE (21:42)
[2017-04-11] MEDS ORDERED: valACYclovir HCL 1000 MG TABLET PO ONE (21:42)
[2017-04-11] MEDS ORDERED: ALBUTEROL SO4 0.083% IH SOL 2.5 MG/3 ML VIAL.NEB. NEB ONE (21:43)
[2017-04-11] MEDS ORDERED: predniSONE 20 MG TABLET (UD) ONE ×2 (21:44→21:45)
== END 2017-04-11 22:42 | disposition home or self-care (01) ==
LOC: JER 18:48
PROC: 3E0F7GC Introduction of Other Therapeutic Substance into Respiratory Tract, Via Natural or Artificial Opening (ICD-10-PCS; principal; 2017-04-11)
PROC: 3E0F7GC Introduction of Other Therapeutic Substance into Respiratory Tract, Via Natural or Artificial Opening (ICD-10-PCS; 2017-04-11)
DX: J44.1 Chronic obstructive pulmonary disease with (acute) exacerbation (principal); Z87.19 Personal history of other diseases of the digestive system; Z87.891 Personal history of nicotine dependence
CPT/HCPCS: 36415; 71020-TC; 80053; 85025; 94640; 99281-25

== ENCOUNTER 2017-09-13 07:57 | Emergency (ER) | payer OTHER ==
--- NOTE | 2017-09-13 08:05 | PDOC ---
History of Present Illness - General Chief Complaint: Pain Stated Complaint: COUGHING/ASTHMA/STOMACH PAIN Time Seen by Provider: 09/13/17 08:05 - History of Present Illness Initial Comments: 09/13/17 08:05 Ms. Szymanski is a 62 yo female w/ pmh of diverticulitis, Asthma, and COPD who presents c/o a 1 day history of nausea and cough with fever and chills. She reports that she had started feeling congested a week ago but that she had consumed a lot of organic tea and stayed in for the week and was feeling better. She had been experiencing some constipation she says is in character with her diverticulitis and drank roberto (spelling?) tea yesterday which allowed her to have several loose bowel movements. Her symptoms started last night following this. The patient denies chest pain, shortness of breath, headache and dizziness. Denies vomit, diarrhea and constipation. Denies dysuria, frequency, urgency and hematuria. Allergies: Cefaclor, azithromycin, levofloxacin Past History - Past Medical History Allergies/Adverse Reactions: Allergies Allergy/AdvReac Type Severity Reaction Status Date / Time cefaclor [From Ceclor] Allergy Severe Difficulty Verified 09/13/17 08:12 Breathing azithromycin [From Zithromax] Allergy Intermediate Rash Verified 09/13/17 08:12 latex Allergy Mild Rash Verified 09/13/17 08:12 levofloxacin [From Levaquin] Allergy Mild Rash Verified 09/13/17 08:12 Home Medications: Ambulatory Orders Albuterol Sulfate [Proventil HFA Inhaler -] 1 - 2 inh PO TID PRN 04/06/16 Fluticasone/Salmeterol [Advair Hfa 230-21 Mcg Inhaler] 1 inh PO BID PRN Gabapentin [Neurontin -] 300 mg PO BID 04/06/16 Montelukast Na [Singulair -] 10 mg PO DAILY PRN 04/06/16 Tiotropium [place] [Spiriva] 1 inh PO TID PRN 04/06/16 traZODone HCL [Desyrel -] 50 mg PO HS 04/06/16 Sumatriptan Succinate [Imitrex -] 100 mg PO ONCE #10 tablet MDD 200mg 07/05/16 Cetirizine HCl 10 mg PO PRN 02/06/17 Lactobacillus Acidophilus [Bacid -] 1 each PO DAILY #10 capsule 02/08/17 Miconazole Nitrate [Monistat-7] 100 mg PV HS #4 supp.vag 02/08/17 Prednisone [Prednisone 50 MG TABLETS] 50 mg PO DAILY #5 tablet 04/11/17 Valacyclovir HCl [Valtrex -] 1,000 mg PO TID #21 tablet 04/11/17 Oseltamivir Phosphate [Tamiflu] 75 mg PO BID #10 capsule 09/13/17 Anemia: No Asthma: Yes Cancer: No Cardiac Disorders: No CVA: No COPD: Yes (pneumonia) CHF: No Dementia: No Diabetes: No GI Disorders: Yes (Diverticulitis, Polyps) Disorders: No HTN: No Hypercholesterolemia: No Liver Disease: No Seizures: No Thyroid Disease: No - Surgical History Abdominal Surgery: No Appendectomy: No Cardiac Surgery: No Cholecystectomy: No Lung Surgery: No Neurologic Surgery: No Orthopedic Surgery: Yes (L knee x2, L foot bone spur sx, bilateral elbow sx) - Immunization History Immunization Up to Date: Yes - Suicide/Smoking/Psychosocial Hx Smoking History: Former smoker Have you smoked in the past 12 months: No If you are a former smoker, when did you quit?: 17 YRS Hx Alcohol Use: No Drug/Substance Use Hx: No Substance Use Type: None Hx Substance Use Treatment: No Review of Systems - Review of Systems Comments:: 09/13/17 08:17 GENERAL/CONSTITUTIONAL: +Fever/chills as described. No weakness. HEAD, EYES, EARS, NOSE AND THROAT: No change in vision. No ear pain or discharge. No sore throat. CARDIOVASCULAR: No chest pain or shortness of breath RESPIRATORY: +1 day of cough. No wheezing, or hemoptysis. GASTROINTESTINAL: +1 day of nausea without vomiting. Constipation as described with recent soft stool after tea. GENITOURINARY: No dysuria, frequency, or change in urination. MUSCULOSKELETAL: No joint or muscle swelling or pain. No neck or back pain. SKIN: No rash NEUROLOGIC: No headache, vertigo, loss of consciousness, or change in strength/ sensation. ENDOCRINE: No increased thirst. No abnormal weight change HEMATOLOGIC/LYMPHATIC: No anemia, easy bleeding, or history of blood clots. ALLERGIC/IMMUNOLOGIC: No hives or skin allergy. *Physical Exam - Physical Exam Comments: 09/13/17 08:17 GENERAL: Awake, alert, and fully oriented, in no acute distress HEAD: No signs of trauma, normocephalic, atraumatic EYES: PERRLA, EOMI, sclera anicteric, conjunctiva clear ENT: Auricles normal inspection, hearing grossly normal, nares patent, oropharynx clear without exudates. Moist mucosa NECK: Normal ROM, supple, no lymphadenopathy, JVD, or masses LUNGS: No distress, speaks full sentences, clear to auscultation bilaterally HEART: +Patient tachycardic. Regular rhythm, normal S1 and S2, no murmurs, rubs or gallops, peripheral pulses normal and equal bilaterally. ABDOMEN: Soft, nontender, normoactive bowel sounds. No guarding, no rebound. No masses EXTREMITIES: Normal inspection, Normal range of motion, no edema. No clubbing or cyanosis. NEUROLOGICAL: Cranial nerves II through XII grossly intact. Normal speech, normal gait, no focal sensorimotor deficits SKIN: Warm, Dry, normal turgor, no rashes or lesions noted. 09/13/17 08:19 ED Treatment Course - LABORATORY CBC & Chemistry Diagram: 09/13/17 08:39 09/13/17 08:39 Medical Decision Making - Medical Decision Making 09/13/17 09:45 Ms. Szymanski is a 62 yo female w/ pmh as described who presents for evaluation of flu-like symptoms. CBC/CMP/EKG/CXR sent for evaluation. CBC/CMP grossly normal as below. CXR negative for acute pathology. EKG: Normal access, normal interval, sinus rhythm, No ST elevations or depressions. Mild tachycardia noted. Grossly normal EKG. 09/13/17 10:52 Patient given breathing treatment for continued cough. Tamiflu ordered empirically as not currently able to result test due to lab reagent shortage. Patient reporting generalized resolution of symptoms and will follow-up with PCP early next week. 09/13/17 11:25 Vital signs vastly improved from presentation after breathing treatment and 2L NS w/ tylenol for pain control. Temperature 99.6, HR slowed from 140 to 99. Discharging to home w/ prescription for tamiflu. Laboratory Results - last 24 hr 09/13/17 09/13/17 09/13/17 08:32 08:39 08:39 WBC 8.1 D RBC 4.58 Hgb 13.8 D Hct 40.5 MCV 88.6 MCH 30.2 MCHC 34.1 RDW 14.7 Plt Count 178 MPV 8.8 Neutrophils % 80.7 D Lymphocytes % 9.5 D Monocytes % 8.6 Eosinophils % 0.3 D Basophils % 0.9 Sodium 136 Potassium 4.2 Chloride 104 Carbon Dioxide 25 Anion Gap 7 L BUN 9 Creatinine 0.6 Creat Clearance w eGFR > 60 Random Glucose 87 Lactic Acid 2.0 Calcium 8.5 Total Bilirubin 0.4 D AST 11 L ALT 13 Alkaline Phosphatase 91 Total Protein 7.5 Albumin 4.0 *DC/Admit/Observation/Transfer Diagnosis at time of Disposition: Cough Fever Qualifiers: Fever type: unspecified Qualified Code(s): R50.9 - Fever, unspecified - Discharge Dispostion Disposition: HOME - Referrals Referrals: Ashley Shah [Primary Care Provider] - - Patient Instructions Printed Discharge Instructions: DI for Fever (Symptom) -- Adult, DI for Cough - - Adult Additional Instructions: Please follow-up with your primary care provider within 1-2 days as discussed. Return to ER if any pain, shortness of breath, or fever not controllable with tylenol or motrin. Take prescriptions as proscribed for relief of symptoms. - Post Discharge Activity
[2017-09-13 08:14] VITALS: BMI 26.6
[2017-09-13] MEDS ORDERED: ACETAMINOPHEN 325 MG TABLET (FP) PO ONE (08:20)
[2017-09-13] MEDS ORDERED: SODIUM CHLORIDE 1,000 ML IV STA ×2 (08:21→09:46)
--- NOTE | 2017-09-13 08:23 | PDOC ---
Attending Attestation - HPI HPI: 09/13/17 09:34 The patient is a 62 year old female with a significant PMH of COPD, and diverticulitis who presents to the emergency department with nausea, cough, fever, and chills beginning last night. Of note, the patient reports drinking SENNA tea yesterday to relieve her usual constipation, after which she had multiple loose BMs. The patient denies chest pain or shortness of breath. She denies vomiting. She denies dysuria or changes in urinary frequency. Denies weakness or numbness, headache. Allergies: Cefaclor, Azithromycin, Latex, Levofloxacin. - Physicial Exam PE: 09/13/17 09:34 GENERAL: Awake, alert, fully oriented in no acute distress HEAD: No signs of trauma EYES: PERRLA, EOMI, sclera anicteric, conjunctiva clear ENT: Auricles normal inspection, hearing grossly normal, nares patent, oropharynx clear without exudates. Moist mucosa NECK: Normal ROM, supple, no lymphadenopathy, JVD, or masses LUNGS: Breath sounds equal, clear to auscultation bilaterally. No wheezes, and no crackles HEART: Regular rate and rhythm, normal S1 and S2, no murmurs, rubs or gallops ABDOMEN: Soft, nontender, normoactive bowel sounds. No guarding, no rebound. No masses EXTREMITIES: Normal range of motion, no edema. No clubbing or cyanosis. No cords , erythema, or tenderness BACK: No midline spinal tenderness in cervical/thoracic/lumbar region NEUROLOGICAL: Normal speech, cranial nerves intact, negative pronator drift, 5/ 5 strength in all 4 extremities, normal sensation to light touch in all 4 extremities, normal cerebellar exam, normal gait, normal reflexes and tone SKIN: Warm, Dry, normal turgor, no rashes or lesions noted. <Butch Koch - Last Filed: 09/13/17 09:34> - Resident Resident Name: Melquiades Mack - ED Attending Attestation I have performed the following: I have examined & evaluated the patient, The case was reviewed & discussed with the resident, I agree w/resident's findings & plan, Exceptions are as noted - Medical Decision Making 09/13/17 09:44 62-year-old female presents to the emergency Department with fevers, chills, cough since last night. Vitals remarkable for tachycardia to 140 initially, down to 120 on my exam. Patient also febrile, likely explaining the tachycardia. Will obtain blood work, lactate, XR, give fluids and Tylenol and reassess vitals. 09/13/17 11:53 Labs including lactate wnl. CXR negative. HR normalized to 94 on my exam after fluids and reduction of fever. Pt feels better, tolerating PO. Got first dose tamiflu. Requests DC home. I discussed the physical exam findings, ancillary test results and final diagnoses with the patient. I answered all of the patient's questions. The patient was satisfied with the care received and felt comfortable with the discharge plan and treatment plan. The patient will call their primary care physician within 24 hours to arrange follow-up and will return to the Emergency Department with any new, persistent or worsening symptoms. <Celena Luciano - Last Filed: 09/13/17 11:54>
[2017-09-13] MEDS ORDERED: ACETAMINOPHEN 325 MG TABLET (FP) ONE (08:33)
[2017-09-13 08:59] LABS: BASO % 0.9 % (0-2.0); EOS % 0.3 % (0-4.5); HEMATOCRIT 40.5 % (32.4-45.2); HEMOGLOBIN 13.8 GM/dL (10.7-15.3); LYMPH % 9.5 % (8-40); MCH 30.2 pg (25.7-33.7); MCHC 34.1 g/dl (32.0-36.0); MEAN CELL VOLUME 88.6 fl (80-96); MEAN PLT VOLUME 8.8 fl (7.5-11.1); MONO % 8.6 % (3.8-10.2); NEUT % 80.7 % (42.8-82.8); PLATELET COUNT 178 K/MM3 (134-434); RBC 4.58 M/mm3 (3.60-5.2); RDW 14.7 % (11.6-15.6); WHITE BLOOD COUNT 8.1 K/mm3 (4.0-10.0)
[2017-09-13] MEDS ORDERED: OSELTAMIVIR PHOSPHATE 75 MG CAPSULE PO ONE (09:19)
[2017-09-13] MEDS ORDERED: OSELTAMIVIR PHOSPHATE 75 MG CAPSULE ONE (09:22)
[2017-09-13 09:30] LABS: ANION GAP 7 (8-16); BILIRUBIN,TOTAL 0.4 mg/dL (0.2-1.0); BLOOD UREA NITROGEN 9 mg/dL (7-18); CALCIUM 8.5 mg/dL (8.5-10.1); CHLORIDE 104 mmol/L (98-107); CO2 25 mmol/L (21-32); CREATININE 0.6 mg/dL (0.55-1.02); GLUCOSE,RANDOM 87 mg/dL (74-106); POTASSIUM 4.2 mmol/L (3.5-5.1); SGOT/AST 11 U/L (15-37); SGPT/ALT 13 U/L (12-78); SODIUM 136 mmol/L (136-145); TOT PROT 7.5 g/dl (6.4-8.2)
[2017-09-13 09:31] LABS: ALK PHOS 91 U/L (45-117)
[2017-09-13] MEDS ORDERED: KETOROLAC TROMETHAMINE 30 MG/1 ML VIAL IVPUSH ONE (09:46)
[2017-09-13] MEDS ORDERED: KETOROLAC TROMETHAMINE 30 MG/1 ML VIAL ONE (09:56)
[2017-09-13] MEDS ORDERED: IPRATROPIUM BR 0.02% 0.5 MG/2.5 ML VIAL.NEB. NEB ONE (10:01)
[2017-09-13] MEDS ORDERED: ALBUTEROL SO4 0.083% IH SOL 2.5 MG/3 ML VIAL.NEB. NEB ONE (10:04)
[2017-09-13 11:07] VITALS: BP 100/58; TEMP 99.6
[2017-09-13 11:51] VITALS: PULSE 99
--- NOTE | 2017-09-13 12:23 | EKG ---
Test Reason : Blood Pressure : / mmHG Vent. Rate : 115 BPM Atrial Rate : 115 BPM P-R Int : 146 ms QRS Dur : 080 ms QT Int : 336 ms P-R-T Axes : 056 056 060 degrees QTc Int : 464 ms SINUS TACHYCARDIA OTHERWISE NORMAL ECG WHEN COMPARED WITH ECG OF 05-MAY-2016 12:42, NO SIGNIFICANT CHANGE WAS FOUND Confirmed by DIANE TRAN MD ([id number]) on 09/13/2017 12:22:58 PM Referred By: Confirmed By:DIANE TRAN MD
== END 2017-09-13 12:30 | disposition home or self-care (01) ==
LOC: JER 07:57
PROC: 3E033GC Introduction of Other Therapeutic Substance into Peripheral Vein, Percutaneous Approach (ICD-10-PCS; principal; 2017-09-13)
PROC: 3E0337Z Introduction of Electrolytic and Water Balance Substance into Peripheral Vein, Percutaneous Approach (ICD-10-PCS; 2017-09-13)
PROC: 3E0F7GC Introduction of Other Therapeutic Substance into Respiratory Tract, Via Natural or Artificial Opening (ICD-10-PCS; 2017-09-13)
DX: R50.9 Fever, unspecified (principal); R05 Cough; J44.9 Chronic obstructive pulmonary disease, unspecified; Z88.8 Allergy status to other drugs, medicaments and biological substances; Z91.040 Latex allergy status
CPT/HCPCS: 36415; 71046-TC-FY; 80053; 83605; 85025; 93005; 93010; 99283-25